=== PATIENT | female | born 2005 | race Caucasian/White ===

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

== ENCOUNTER → 2025-01-09 | Outpatient (CLI) | payer OTHER, SELFPAY ==
[2025-01-09 18:03] LABS: Hematocrit 36.2 % (37-47); Hemoglobin 12.1 g/dL (12.0-15.0); Immature Granulocytes Count 0.050 X10^3/uL (0.0-0.0); Mean Corp Hgb Conc 33.4 g/dL (32-36); Mean Corpuscular Volume 78.7 fL (81-99); Mean Platelet Vol. 8.5 fl (6.2-12.0); NRBC Flagged by Analyzer 0 % (0-5); Platelet Count 338 K/mm3 (150-450); RBC Distribution Width CV 13.0 % (11.6-14.6); RBC Distribution Width SD 37.1 fl (35.1-43.9); Red Blood Count 4.60 M/mm3 (4.2-5.4); White Blood Count 6.7 K/mm3 (4.4-11.0)
[2025-01-09 18:17] LABS: AST(SGOT) 22 U/L (<=31); Alanine Aminotransfer ALT/SGPT 14 U/L (<=34); Albumin, Serum 4.2 g/dL (3.5-5.0); Alkaline Phosphatase 68 U/L (35-104); Anion Gap 13 (5-15); BUN 10 mg/dL (4-19); BUN/Creat Ratio 24.6 RATIO (10-20); Calcium,Total 9.5 mg/dL (7.6-11.0); Carbon Dioxide 23.4 mmol/L (21.0-32.0); Chloride 102 mmol/L (98-108); Globulin 3.0 g/dL (2.2-4.2); Glucose 85 mg/dL (70-99); Potassium 3.8 mmol/L (3.3-5.1)
== END | disposition home or self-care (01) ==
LOC: MTLAB 16:24
PROVIDERS: PCP Nurse Practitioner Adult Health; Referring Provider Internal Medicine Rheumatology; Visit Provider Internal Medicine Rheumatology
DX: M05.79 Rheumatoid arthritis with rheumatoid factor of multiple sites without organ or systems involvement (principal); R76.89 Other specified abnormal immunological findings in serum; N83.519 Torsion of ovary and ovarian pedicle, unspecified side; N94.6 Dysmenorrhea, unspecified; Z79.899 Other long term (current) drug therapy
CPT/HCPCS: 36415; 80053; 85025

== ENCOUNTER → 2025-01-16 | Outpatient (CLI) | payer OTHER, SELFPAY ==
--- NOTE | 2025-01-16 15:54 | RAD_ITS ---
PROCEDURE: Chest PA and lateral 01/16/2025 REASON FOR EXAM: RA TECHNIQUE: Procedure Code: RADCXR Modality: DX Procedure: CHEST PA AND LATERAL COMPARISON: None. FINDINGS: There is bilateral perihilar peribronchial thickening consistent with viral pneumonia or acute bronchitis. The heart borders mediastinum and pulmonary vascular pattern are normal. The upper abdominal bowel gas pattern is normal. There are no significant bony abnormalities. RAD/Chest PA and Lateral IMPRESSION: Findings consistent with viral pneumonia or acute bronchitis. Reading Location: [place] [address]
--- OUTSIDE RECORDS SUMMARY | 2025-01-16 18:08 | XMS RPT_ITS | CCD ---
Author Organization [facility] Care Team Providers Care Buckler And Lacer Name Role Phone VERONICA DIANA PA-C Primary Care Physician Dr. Amanda Hernandez Primary Care Provider Dr. Amanda Hernandez Referring Provider Dr. Nivia Anderson Attending Provider Amanda Hernandez MD Primary Care Provider Dr. Amanda Hernandez Primary Care Provider Dr. Amanda Hernandez Referring Provider Dr. Nivia Anderson Attending Provider DESMOND CRISTINA Attending Unavailable DESMOND CRISTINA Referring Unavailable HERNANDEZ, AMANDA A Primary Care Unavailable HERNANDEZ, AMANDA A Primary Care Unavailable HERNANDEZ, AMANDA A Attending Unavailable REFERRED, SELF Referring Unavailable HERNANDEZ, AMANDA A Attending Unavailable HERNANDEZ, AMANDA A Primary Care Unavailable REFERRED, SELF Referring Unavailable HERNANDEZ, AMANDA A Attending Unavailable HERNANDEZ, AMANDA A Primary Care Unavailable REFERRED, SELF Referring Unavailable REFERRED, SELF Referring Unavailable HERNANDEZ, AMANDA A Primary Care Unavailable HERNANDEZ, AMANDA A Attending Unavailable HERNANDEZ, AMANDA A Primary Care Unavailable AROLDO PAGAN Attending Unavailable REFERRED, SELF Referring Unavailable HERNANDEZ, AMANDA A Primary Care Unavailable RANDAL RUIZ Attending Unavailable REFERRED, SELF Referring Unavailable HERNANDEZ, AMANDA A Primary Care Unavailable RANDAL RUIZ Attending Unavailable REFERRED, SELF Referring Unavailable DESMOND CRISTINA Attending Unavailable DESMOND CRISTINA Referring Unavailable HERNANDEZ, AMANDA A Primary Care Unavailable HERNANDEZ, AMANDA A Attending Unavailable HERNANDEZ, AMANDA A Referring Unavailable HERNANDEZ, AMANDA A Primary Care Unavailable ALEYDA MAO Attending Un available VACCARELLI PA-C, VERONICA Primary Care Unavailab le VACCARELLI PA-C, VERONICA Attending Unavailab le VACCARELLI PA-C, VERONICA Primary Care Unavailab le MOHINDER SAW RUNNER-AIR CONDITIONING SHEET METAL INSTALLER, JULIET Attending Unavaila ble VACCARELLI PA-C, VERONICA Primary Care Unavailab le VACCARELLI PA-C, VERONICA Primary Care Unavailab le PAUL PA-C, YUVAL L Attending Tang Hernandez MD, Dr. Patel Primary Care Provider Yue SHAW, Dr. Singh Attending Provider Yue SHAW, Dr. Singh Referring Provider MAST SAW RUNNER-AIR CONDITIONING SHEET METAL INSTALLER, BIMAL Attending Unavailabl e VACCARELLI PA-C, VERONICA Primary Care Unavailab le VACCARELLI PA-C, VERONICA Primary Care Unavailab le TAMMY DO, JOSE EDUARDO Attending Unavailable VACCARELLI PA-C, VERONICA Primary Care Unavailab le YUE SHAW, DR SINGH Attending Unavailabl e VACCARELLI PA-C, VERONICA Primary Care Unavailab le MAST SAW RUNNER-AIR CONDITIONING SHEET METAL INSTALLER, BIMAL Attending Unavailabl e MAST SAW RUNNER-AIR CONDITIONING SHEET METAL INSTALLER, BIMAL Attending Unavailabl e VACCARELLI PA-C, VERONICA Primary Care Unavailab le MAST MANAGEMENT RECRUITER, BIMAL Primary Care Provider Chago SHAW, Dr. Patel Referring Provider Monica SHAW, Dr. Gonzáles Attending Provider Amanda Hernandez Primary Care Unavailable Casandra Turner Attending Unavailable Casandra Turner Referring Unavailable Amanda Hernandez Primary Care Unavailable Casandra Turner Attending Unavailable Casandra Turner Referring Unavailable Casandra Turner Attending Unavailable OSMIN, BIMAL Primary Care Unavailable Casandra Turner Referring Unavailable OSMIN, BIMAL Primary Care Unavailable Nivia Anderson Attending Unavailable Amanda Hernandez Referring Unavailable MAST, BIMAL Primary Care Unavailable Casandra Turner Attending Unavailable Casandra Turner Referring Unavailable Medications Current Medications Medication Drug Class(es) Dates Sig (Normalized) Sig (Original) cholecalciferol 0.125 mg oral tablet (6 sources) Vitamin D Start: 04-17-2023 take 1 tablet by mouth once daily Cholecalciferol (Vitamin D3) 125 mcg (5,000 unit) tablet Active 125 ug PO DAILY April 17, 2023 1:00am 168 hr ethinyl estradiol 0.41759 mg/hr / norelgestromin 0.05184 mg/hr transdermal system (7 sources) Progestin, Estrogen Start: 10-02-2023 ethinyl estradiol-norelgestr omin 35 mcg-150 mcg/24 hr transdermal film, extended release 0 Refill(s) Start Date: 10/02/23 Status: Ordered Repeat number: 1 Start: 05-29-2023 apply 1 dose transde rmal route every week XULANE 150-35 MCG/24HR patch Place 1 Patch onto the skin once a week 05/29/2023 Active hydroxychloroquine sulfate 200 mg oral tablet (2 sources) Antimalarial, Antirheumatic Agent Start: 10-14-2024 take 1 tablet by mouth once daily Hydroxychloroquine (Plaquenil) 200 mg tablet Active 200 mg PO daily October 14, 2024 12:00am meloxicam 15 mg oral tablet (3 sources) Nonsteroidal Anti-inflammatory Drug Start: 08-01-2024 Mobic 15 mg oral tablet Dose : 15 mg = 1 tab(s), Oral, qDay, # 30 tab(s), 0 Refill(s), Pharmacy: [facility]/pharmacy #[id number], 156, cm, 06/15/24 14:03:00 EDT, Height, kg, 06/15/24 14:03:00 EDT, Dosing Weight Start Date: 08/01/24 Status: Ordered Quantity: 30.0 Unit: tab(s) Repeat number: 1 Start: 06-15-2024 Mobic 15 mg or al tablet Dose : 15 mg = 1 tab(s), Oral, qDay, # 30 tab(s), 0 Refill(s), Pharmacy: [facility]/pharmacy #[id number], 156, cm, 06/15/24 14:03:00 EDT, Height, kg, 06/15/24 14:03:00 EDT, Dosing Weight Start Date: 06/15/24 Status: Ordered Quantity: 30.0 Unit: tab(s) Repeat number: 1 naproxen 250 mg oral tablet (12 sources) Nonsteroidal Anti-inflammatory Drug Start: 03-16-2023 naproxen [...] 30 Tablet 1 02/17/2023 Active Start: 07-31-2022 End: 10-14-2024 Naproxen 500 mg tablet Disco ntinued 500 mg PO TWICE A DAY as needed for pain July 31, 2022 12:00am October 14, 2024 2:15pm 500mg for first dose, 250 x8hrs after predniSONE 5 mg oral tablet (2 sources) Start: 10-14-2024 take 1 tablet by mouth once daily Prednisone 5 mg tablet Active 5 mg PO daily October 14, 2024 12:00am Completed/Discontinued Medications Medication Drug Class(es) Dates Sig (Normalized) Sig (Original) Norelgestromin-Ethi n.Estradiol (Xulane) 150-35 mcg/24 hr patch weekly (6 sources) Start: 04-17-2023 End: 03-23-2024 Norelgestromin-Ethin .Estradiol (Xulane) 150-35 mcg/24 hr patch weekly Discontinued 1 NMA TD Q7D 05 11April 17, 2023 1:00am March 23, 2024 9:29am Start: 04-17-2023 Norelgestromin -Ethin.Estradiol (Xulane) 150-35 mcg/24 hr patch weekly Active 1 PATCH TD Q7D April 17, 2023 1:00am Start: 04-17-2023 Norelgestromin -Ethin.Estradiol (Xulane) 150-35 mcg/24 hr patch weekly Active 1 PATCH TD Q7D April 17, 2023 12:00am Norelgestromin-Ethin.Estradi ol 150-35 mcg/24 hr patch weekly (12 sources) Start: 05-09-2024 End: 10-14-2024 Norelgestromin-Ethin.Estradi ol 150-35 mcg/24 hr patch weekly Discontinued 1 NMA TD EVERY WEEK 12 May 09, 2024 8:22am October 14, 2024 2:36pm Start: 05-09-2024 Norelgestromin -Ethin.Estradiol 150-35 mcg/24 hr patch weekly Active 1 NMA TD EVERY WEEK 12 May 09, 2024 8:22am Start: 05-06-2024 End: 05-09-2024 Norelgestromin-Ethin.Estradi ol 150-35 mcg/24 hr patch weekly Discontinued 1 NMA TD EVERY WEEK 3 May 06, 2024 12:51pm May 09, 2024 8:23am Start: 03-23-2024 End: 05-06-2024 Norelgestromin-Ethin.Estradi ol 150-35 mcg/24 hr patch weekly Discontinued 1 NMA TD EVERY WEEK 3 March 23, 2024 9:29am May 06, 2024 12:51pm ondansetron 4 mg oral tablet (6 sources) Serotonin-3 Receptor Antagonist Start: 05-18-2017 End: 05-21-2017 take 1 tablet by mouth every six hours as needed for nausea and vomiting Ondansetron Hcl (Zofran) 4 mg tablet Discontinued 4 mg PO EVERY 6 HOURS as needed for nausea and vomiting 10 3 0 May 18, 2017 12:00am May 20, 2017 12:00am May 21, 2017 12:06am Noninfective gastroenteritis and colitis, unspecified Vitamin D (3 sources) Start: 06-15-2024 vitamin D vitamin D, 0 Refill(s), 44.5 Start Date: 06/15/24 Status: Ordered Repeat number: 1 Problems Active Problems Problem Classification Problem Date Documented Da te Episodic/Chronic Acquired foot deformities (3 sources) Acquired pes planus 06-15-2024 Episodic Immunizations and screening for infectious disease (3 sources) Rheumatoid factor positive; Translations: [Other specified abnormal immunological findings in serum] Onset: 01-09-2025 07-26-2024 Episodic Menstrual disorders (11 sources) Dysmenorrhea; Translations: [Dysmenorrhea, unspecified] Onset: 01-09-2025 04-17-2023 Chronic Comment on above: failed NSAIDs trial Reji luciano used and did well- thought she may have had mood side effects, want to take a break for now and then may try nuvaring. Noninfectious gastroenteritis (6 sources) Gastroenteritis; Translations: [Noninfective gastroenteritis and colitis, unspecified] 07-31-2022 Episodic Nutritional deficiencies (4 sources) Vitamin D deficiency 10-02-2023 Chronic Other aftercare (1 source) Other detention (current) drug therapy; Translations: [Other parts counterman (current) drug therapy] Onset: 01-09-2025 Episodic Other female genital disorders (1 source) Torsion of ovary and ovarian pedicle, unspecified side; Translations: [Torsion of ovary and ovarian pedicle, unspecified side] Onset: 01-09-2025 Episodic Other gastrointestinal disorders (2 sources) Splenomegaly; Translations: [Splenomegaly, not elsewhere classified] 06-05-2023 Episodic Other liver diseases (1 source) Elevated liver enzymes level; Translations: [Abnormal levels of other serum enzymes] 06-11-2023 Episodic Other liver diseases (2 sources) Serum lactate dehydrogenase level elevated; Translations: [Elevated LDH] 06-11-2023 Episodic Other liver diseases (1 source) Elevated levels of transaminase & lactic acid dehydrogenase; Translations: [Elevated levels of transaminase & lactic acid dehydrogenase] 08-13-2023 Episodic Other non-traumatic joint disorders (3 sources) Hip pain 06-15-2024 Episodic Other non-traumatic joint disorders (3 sources) Knee pain 06-15-2024 Episodic Other screening for suspected conditions (not mental disorders or infectious disease) (1 source) Elevated C-reactive protein; Translations: [Elevated C-reactive protein (CRP)] 06-11-2023 Episodic Other upper respiratory infections (2 sources) Viral pharyngitis; Translations: [Acute pharyngitis, unspecified] Onset: 06-06-2024 06-05-2023 Episodic Residual codes; unclassified (6 sources) History of laparoscopy; Translations: [Other specified postprocedural states] 07-31-2022 Episodic Comment on above: ovarian right torsio n, able to be untwisted and saved 2020 Residual codes; unclassified (3 sources) Screening due 06-15-2024 Episodic Rheumatoid arthritis and related disease (5 sources) Rheumatoid arthritis; Translations: [Rheumatoid arthritis, unspecified] Onset: 08-29-2024 10-14-2024 Chronic Unclassified (3 sources) Patient encounter status 04-16-2025 Past or Other Problems Problem Classification Problem Date Documented Da te Episodic/Chronic Ovarian cyst (3 sources) Cyst of ovary; Translations: [Unspecified ovarian cyst, unspecified side] Onset: 01-17-2021 Resolved: 05-02-2021 05-02-2021 Episodic Results Test Name Value Interpretation Reference Range Facility CBC W/Diff, Automatedon 12-31 Absolute Lymph 2.04 X10 3/uL Normal 0.83-4.51 [facility] Comment on above: Performed By: #### L 3890.6301, L4, L3890.6202, L3890.6102, L500.4050, L501.0900, L4500.0100, L100.0100 #### [facility] [address] [place], [address] Absolute Neut 4.0 X10 3/uL Normal 2.0-7.7 [facility] Comment on above: Performed By: #### L 3890.630, , L3890.6202, L3890.6102, L500.4050, L501.0900, L4500.0100, L100.0100 #### [facility] [address] [place], [address] Basophils/100 WBC (Bld) 0.7 % Normal 0-1 [facility] Comment on above: Performed By: #### L 3890.6301, L4, L3890.6202, L3890.6102, L500.4050, L501.0900, L4500.0100, L100.0100 #### [facility] [address] [place], [address] Eosinophils/100 WBC (Bld) 1.3 % Normal 0-5 [facility] Comment on above: Performed By: #### L 3890.6301, L4, L3890.6202, L3890.6102, L500.4050, L501.0900, L4500.0100, L100.0100 #### [facility] [address] [place], [address] Erythrocyte distribution width (RBC) [Ratio] 13.0 % Normal 11.6-14.6 [facility] Comment on above: Performed By: #### L 3890.6301, L400, L3890.6202, L3890.6102, L500.4050, L501.0900, L4500.0100, L100.0100 #### [facility] [address] [place], [address] Hematocrit (Bld) [Volume fraction] 36.2 % Low 37-47 [facility] Comment on above: Performed By: #### L 3890.630, , L3890.6202, L3890.6102, L500.4050, L501.0900, L4500.0100, L100.0100 #### [facility] [address] [place], [address] Hemoglobin (Bld) [Mass/Vol] 12.1 g/dL Normal 12.0-15.0 [facility] Comment on above: Performed By: #### L 3890.6301, L4, L3890.6202, L3890.6102, L500.4050, L501.0900, L4500.0100, L100.0100 #### [facility] [address] [place], [address] IG% 0.700 Normal 0.0-0.9 [facility] Comment on above: Result Comment: IG% - Immature Granulocytes (promyelocytes, myelocytes and metamyelocytes) > 1% indicates that a LEFT SHIFT is Present. Performed By: #### L 3890.6301, L4, L3890.6202, L3890.6102, L500.4050, L501.0900, L4500.0100, L100.0100 #### [facility] [address] [place], [address] Lymphocytes/100 WBC (Bld) 30.4 % Normal 19-41 [facility] Comment on above: Performed By: #### L 3890.6301, L400.2010, L3890.6202, L3890.6102, L500.4050, L501.0900, L4500.0100, L100.0100 #### [facility] [address] [place], [address] MCH (RBC) [Entitic mass] 26.3 pg Low 27.0-32.0 [facility] Comment on above: Performed By: #### L 3890.6301, L400.2010, L3890.6202, L3890.6102, L500.4050, L501.0900, L4500.0100, L100.0100 #### [facility] [address] [place], [address] MCHC (RBC) [Mass/Vol] 33.4 g/dL Normal 32-36 [facility] Comment on above: Performed By: #### L 3890.6301, L400.2010, L3890.6202, L3890.6102, L500.4050, L501.0900, L4500.0100, L100.0100 #### [facility] [address] [place], [address] MCV (RBC) [Entitic vol] 78.7 fL Low 81-99 [facility] Comment on above: Performed By: #### L 3890.6301, L400.2010, L3890.6202, L3890.6102, L500.4050, L501.0900, L4500.0100, L100.0100 #### [facility] [address] [place], [address] Monocytes/100 WBC (Bld) 7.6 % Normal 0-10 [facility] Comment on above: Performed By: #### L 3890.6301, L400.2010, L3890.6202, L3890.6102, L500.4050, L501.0900, L4500.0100, L100.0100 #### [facility] [address] [place], [address] Neutrophils/100 WBC (Bld) 59.3 % Normal 47-70 [facility] Comment on above: Performed By: #### L 3890.6301, L400.2010, L3890.6202, L3890.6102, L500.4050, L501.0900, L4500.0100, L100.0100 #### [facility] [address] [place] [place], [address] Nucleated RBC (Bld) [#/Vol] 0 10*3/uL Normal 0-5 [facility] Comment on above: Performed By: #### L 3890.6301, L4, L3890.6202, L3890.6102, L500.4050, L501.0900, L4500.0100, L100.0100 #### [facility] [address] [facility] [place], [address] Platelet mean volume (Bld) [Entitic vol] 8.5 fL Normal 6.2-12.0 [facility] Comment on above: Performed By: #### L 3890.6301, L4, L3890.6202, L3890.6102, L500.4050, L501.0900, L4500.0100, L100.0100 #### [facility] [address] [place], [address] Platelets (Bld) [#/Vol] 338 10*3/uL Normal 150-450 [facility] Comment on above: Performed By: #### L 3890.6301, L4, L3890.6202, L3890.6102, L500.4050, L501.0900, L4500.0100, L100.0100 #### [facility] [address] [place], [address] RBC (Bld) [#/Vol] 4.60 10*6/uL Normal 4.2-5.4 [facility] Comment on above: Performed By: #### L 3890.6301, L400.2010, L3890.6202, L3890.6102, L500.4050, L501.0900, L4500.0100, L100.0100 #### [facility] [address] [place], [address] RDW SD 37.1 fl Normal 35.1-43.9 [facility] Comment on above: Performed By: #### L 3890.6301, L400, L3890.6202, L3890.6102, L500.4050, L501.0900, L4500.0100, L100.0100 #### [facility] [address] [place], [address] WBC (Bld) [#/Vol] 6.7 10*3/uL Normal 4.4-11.0 [facility] Comment on above: Performed By: #### L 3890.6301, L400.2010, L3890.6202, L3890.6102, L500.4050, L501.0900, L4500.0100, L100.0100 #### [facility] [address] [place], [address] Comprehensive Metabolic Prof laon 01-09-2025 Albumin [Mass/Vol] 4.2 g/dL Normal 3.5-5.0 [facility] Comment on above: Performed By: #### L 3890.6301, L400.2010, L3890.6202, L3890.6102, L500.4050, L501.0900, L4500.0100, L100.0100 #### [facility] [address] [place], [address] Albumin/Globulin [Mass ratio] 1.4 {ratio} Normal 0.9-2.4 [facility] Comment on above: Performed By: #### L 3890.6301, L400.2010, L3890.6202, L3890.6102, L500.4050, L501.0900, L4500.0100, L100.0100 #### [facility] [address] [place], [address] ALK PHOS 68 U/L Normal 35-104 [facility] Comment on above: Performed By: #### L 3890.6301, L4, L3890.6202, L3890.6102, L500.4050, L501.0900, L4500.0100, L100.0100 #### [facility] [address] [place], [address] ALT [Catalytic activity/Vol] 14 U/L Normal <=34 [facility] Comment on above: Performed By: #### L 3890.6301, L4, L3890.6202, L3890.6102, L500.4050, L501.0900, L4500.0100, L100.0100 #### [facility] [address] [place], [address] AST [Catalytic activity/Vol] 22 U/L Normal <=31 [facility] Comment on above: Performed By: #### L 3890.6301, L400, L3890.6202, L3890.6102, L500.4050, L501.0900, L4500.0100, L100.0100 #### [facility] [address] [place], [address] Bilirubin [Mass/Vol] 0.29 mg/dL Normal 0.00-1.30 [facility] Comment on above: Performed By: #### L 3890.6301, L4, L3890.6202, L3890.6102, L500.4050, L501.0900, L4500.0100, L100.0100 #### [facility] [address] [place], [address] BUN/CRE 24.6 RATIO High 10-20 [facility] Comment on above: Performed By: #### L 3890.6301, L4, L3890.6202, L3890.6102, L500.4050, L501.0900, L4500.0100, L100.0100 #### [facility] [address] [place], [address] Calcium [Mass/Vol] 9.5 mg/dL Normal 7.6-11.0 [facility] Comment on above: Performed By: #### L 3890.6301, , L3890.6202, L3890.6102, L500.4050, L501.0900, L4500.0100, L100.0100 #### [facility] [address] [place], [address] Chloride [Moles/Vol] 102 mmol/L Normal 98-108 [facility] Comment on above: Performed By: #### L 3890.6301, L4, L3890.6202, L3890.6102, L500.4050, L501.0900, L4500.0100, L100.0100 #### [facility] [address] [place], [address] CO2 [Moles/Vol] 23.4 mmol/L Normal 21.0-32.0 [facility] Comment on above: Performed By: #### L 3890.6301, L4, L3890.6202, L3890.6102, L500.4050, L501.0900, L4500.0100, L100.0100 #### [facility] [address] [place], [address] Creatinine [Mass/Vol] 0.40 mg/dL Low 0.70-1.20 [facility] Comment on above: Performed By: #### L 3890.6301, L400, L3890.6202, L3890.6102, L500.4050, L501.0900, L4500.0100, L100.0100 #### [facility] [address] [place], [address] GAP 13 Normal 5-15 [facility] Comment on above: Performed By: #### L 3890.6301, L4, L3890.6202, L3890.6102, L500.4050, L501.0900, L4500.0100, L100.0100 #### [facility] [address] [place], [address] GFR/1.73 sq M.predicted among non-blacks MDRD (S/P/Bld) [Vol rate/Area] 146 mL/min/{1.73_m2} Normal >60 [facility] Comment on above: Result Comment: mL/m in/1.73m2 CKD-EPI Creatinine Equation (2020) Performed By: #### L 3890.6301, L4, L3890.6202, L3890.6102, L500.4050, L501.0900, L4500.0100, L100.0100 #### [facility] [address] [place], [address] Globulin (S) [Mass/Vol] 3.0 g/dL Normal 2.2-4.2 [facility] Comment on above: Performed By: #### L 3890.6301, L400, L3890.6202, L3890.6102, L500.4050, L501.0900, L4500.0100, L100.0100 #### [facility] [address] [place], [address] Glucose [Mass/Vol] 85 mg/dL Normal 70-99 [facility] Comment on above: Performed By: #### L 3890.6301, L400, L3890.6202, L3890.6102, L500.4050, L501.0900, L4500.0100, L100.0100 #### [facility] [address] [place], [address] Potassium [Moles/Vol] 3.8 mmol/L Normal 3.3-5.1 [facility] Comment on above: Performed By: #### L 3890.6301, L400, L3890.6202, L3890.6102, L500.4050, L501.0900, L4500.0100, L100.0100 #### [facility] [address] [place], [address] Sodium [Moles/Vol] 139 mmol/L Normal 133-145 [facility] Comment on above: Performed By: #### L 3890.6301, L4, L3890.6202, L3890.6102, L500.4050, L501.0900, L4500.0100, L100.0100 #### [facility] [address] [place], [address] T PROT 7.2 g/dL Normal 5.9-8.4 [facility] Comment on above: Performed By: #### L 3890.6301, L400, L3890.6202, L3890.6102, L500.4050, L501.0900, L4500.0100, L100.0100 #### [facility] [address] [place], [address] Urea nitrogen [Mass/Vol] 10 mg/dL Normal 4-19 [facility] Comment on above: Performed By: #### L 3890.6301, L400.2010, L3890.6202, L3890.6102, L500.4050, L501.0900, L4500.0100, L100.0100 #### [facility] [address] [place], [address] Factory Worker Office Visit Reporton 10-14-2024 Factory Worker Office Visit Report [facility] [address], [address] [place] [address] OFFICE VISIT Date of Service: 10/14/24 MR#: [id number] Acct: [id number] Name: NEYMAR GROSS Rep #: [id number] : 2005 Provider: Dr. Nivia garber MD Age/Sex: 19/F Location: [facility] Status: Signed Intake Vital Signs 07/28/23 16:11 10/14/24 14:13 Height 4 ft 11 in 4 ft 11 in Weight: 101 lb 5 oz BMI 20.5 BP 117/73 Intake Visit Reasons: Control FU Packaging Coordinator Required: No Is patient in pain?: No Allergies No Known Allergies Allergy (Unverified 10/14/24 14:14) Medications ???Medication ???Instructions ???Recorded ???Confirmed ???Type cholecalciferol (vitamin D3) 125 125 mcg PO DAILY 04/17/23 10/14/24 History mcg (5,000 unit) tablet hydroxychloroquine 200 mg tablet 200 mg PO QDAY 10/14/24 10/14/24 H istory (Plaquenil) prednisone 5 mg tablet 5 mg PO QDAY 10/14/24 10/14/24 His tory Is last menstrual period known: Yes Last Menstrual Period: 09/22/24 Post menopausal: No Patient : No : No PFSH Medical History Rheumatoid arthritis Surgical History S/P laparoscopy Family History Father Hypertension Other Thyroid disorder Social History current occupational status: employed 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 she has had improvement on the xulane bu hads some local reaction with the adhesive and she has some mood side effects. 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 she is wanting to stop the patch for a few months, if she goes back on a hormone she is open to trying something different maybe the nuvaring or a pill. Female Reproductive History Last Menstrual Period: 09/22/24 ROS Const Constitutional: Denies fatigue, fever(s), headache(s), [...] (1) Dysmenorrhea in adolescent: Status: Acute Comment: xulane used and did well- thought she may have had mood side effects, want to take a break for now and then may try nuvaring. Medications: Discontinued norelgestromin-ethin .estradiol 150-35 mcg/24 hr Discontinued Reason: Order Changed 1 patch transdermal QWEEK 12 patches 12RF Plan Problem list updated and treatment plans were reviewed with the patient and relevant educational handouts given. See problem list details for specific plan information. 10/18/24 5245 Date Nivia Lr Signature: Date (if applicable) CC: Normal [facility] Anion gap in Serum or Plasma Ordered By: Casandra Turner on 10-13-2024 Anion gap [Moles/Vol] 13 mmol/L 5-15 [facility] BUN/creatinine ratioOrdered By: Casandra Turner on 10-13-2024 Urea nitrogen/Creatinine [Mass ratio] 23.5 mg/mg High 10-20 [facility] Bilirubin, totalOrdered By: Casandra Turner on 10-13-2024 Bilirubin [Mass/Vol] 0.18 mg/dL 0.00-1.30 [facility] Carbon dioxide, total [Moles /volume] in Central venous bloodOrdered By: Casandra Turner on 10-13-2024 CO2 [Moles/Vol] 21.8 mmol/L 21.0-32.0 [facility] Chloride assayOrdered By: Pollo Turner on 10-13-2024 Chloride [Moles/Vol] 104 mmol/L 98-108 [facility] Comprehensive Metabolic Prof ilon 10-13-2024 Albumin [Mass/Vol] 4.2 g/dL Normal 3.5-5.0 [facility] Comment on above: Performed By: #### L 3890.6301, L400.2010, L3890.6202, L3890.6102, L500.4050, L501.0900, L4500.0100, L100.0100 #### [facility] [address] [place], [address] Albumin/Globulin [Mass ratio] 1.4 {ratio} Normal 0.9-2.4 [facility] Comment on above: Performed By: #### L 3890.6301, L4, L3890.6202, L3890.6102, L500.4050, L501.0900, L4500.0100, L100.0100 #### [facility] [address] [place], [address] ALK PHOS 47 U/L Normal 35-104 [facility] Comment on above: Performed By: #### L 3890.6301, L4, L3890.6202, L3890.6102, L500.4050, L501.0900, L4500.0100, L100.0100 #### [facility] [address] [place], [address] ALT [Catalytic activity/Vol] 31 U/L Normal <=34 [facility] Comment on above: Performed By: #### L 3890.6301, , L3890.6202, L3890.6102, L500.4050, L501.0900, L4500.0100, L100.0100 #### [facility] [address] [place], [address] AST [Catalytic activity/Vol] 22 U/L Normal <=31 [facility] Comment on above: Performed By: #### L 3890.6301, , L3890.6202, L3890.6102, L500.4050, L501.0900, L4500.0100, L100.0100 #### [facility] [address] [place], [address] Bilirubin [Mass/Vol] 0.18 mg/dL Normal 0.00-1.30 [facility] Comment on above: Performed By: #### L 3890.6301, L4, L3890.6202, L3890.6102, L500.4050, L501.0900, L4500.0100, L100.0100 #### [facility] [address] [place], [address] BUN/CRE 23.5 RATIO High 10-20 [facility] Comment on above: Performed By: #### L 3890.6301, L400.2010, L3890.6202, L3890.6102, L500.4050, L501.0900, L4500.0100, L100.0100 #### [facility] [address] [place], [address] Calcium [Mass/Vol] 9.4 mg/dL Normal 7.6-11.0 [facility] Comment on above: Performed By: #### L 3890.6301, L400, L3890.6202, L3890.6102, L500.4050, L501.0900, L4500.0100, L100.0100 #### [facility] [address] [place], [address] Chloride [Moles/Vol] 104 mmol/L Normal 98-108 [facility] Comment on above: Performed By: #### L 3890.6301, L400.2010, L3890.6202, L3890.6102, L500.4050, L501.0900, L4500.0100, L100.0100 #### [facility] [address] [place], [address] CO2 [Moles/Vol] 21.8 mmol/L Normal 21.0-32.0 [facility] Comment on above: Performed By: #### L 3890.6301, L400.2010, L3890.6202, L3890.6102, L500.4050, L501.0900, L4500.0100, L100.0100 #### [facility] [address] [place], [address] Creatinine [Mass/Vol] 0.43 mg/dL Low 0.70-1.20 [facility] Comment on above: Performed By: #### L 3890.6301, L400, L3890.6202, L3890.6102, L500.4050, L501.0900, L4500.0100, L100.0100 #### [facility] [address] [place], [address] GAP 13 Normal 5-15 [facility] Comment on above: Performed By: #### L 3890.6301, L4, L3890.6202, L3890.6102, L500.4050, L501.0900, L4500.0100, L100.0100 #### [facility] [address] [place], [address] GFR/1.73 sq M.predicted among non-blacks MDRD (S/P/Bld) [Vol rate/Area] 144 mL/min/{1.73_m2} Normal >60 [facility] Comment on above: Result Comment: mL/m in/1.73m2 CKD-EPI Creatinine Equation (2020) Performed By: #### L 3890.6301, L4, L3890.6202, L3890.6102, L500.4050, L501.0900, L4500.0100, L100.0100 #### [facility] [address] [place], [address] Globulin (S) [Mass/Vol] 3.0 g/dL Normal 2.2-4.2 [facility] Comment on above: Performed By: #### L 3890.6301, L4, L3890.6202, L3890.6102, L500.4050, L501.0900, L4500.0100, L100.0100 #### [facility] [address] [place], [address] Glucose [Mass/Vol] 96 mg/dL Normal 70-99 [facility] Comment on above: Performed By: #### L 3890.6301, L400, L3890.6202, L3890.6102, L500.4050, L501.0900, L4500.0100, L100.0100 #### [facility] [address] [place], [address] Potassium [Moles/Vol] 3.8 mmol/L Normal 3.3-5.1 [facility] Comment on above: Performed By: #### L 3890.6301, L4, L3890.6202, L3890.6102, L500.4050, L501.0900, L4500.0100, L100.0100 #### [facility] [address] [place], [address] Sodium [Moles/Vol] 138 mmol/L Normal 133-145 [facility] Comment on above: Performed By: #### L 3890.6301, , L3890.6202, L3890.6102, L500.4050, L501.0900, L4500.0100, L100.0100 #### [facility] [address] [place], [address] T PROT 7.3 g/dL Normal 5.9-8.4 [facility] Comment on above: Performed By: #### L 3890.6301, L4, L3890.6202, L3890.6102, L500.4050, L501.0900, L4500.0100, L100.0100 #### [facility] [address] [place], [address] Urea nitrogen [Mass/Vol] 10 mg/dL Normal 4-19 [facility] Comment on above: Performed By: #### L 3890.6301, L4, L3890.6202, L3890.6102, L500.4050, L501.0900, L4500.0100, L100.0100 #### [facility] [address] [place], [address] Glomerular filtration rate ( GFR) estimation/1.73 sq m using serum, plasma, or whole bOrdered By: Casandra Turner on 10-13-2024 GFR/1.73 sq M.predicted among non-blacks MDRD (S/P/Bld) [Vol rate/Area] 144 mL/min/{1.73_m2} >60 [facility] Comment on above: mL/min/1.73m2 CKD-EP I Creatinine Equation (2020) Laboratory - Chemistry and C hemistry - challengeOrdered By: Casandra Turner on 10-13-2024 AST [Catalytic activity/Vol] 22 U/L <32 [facility] Potassium measurement (mass/ volume)Ordered By: Casandra Turner on 10-13-2024 Potassium (Unsp spec) [Mass/Vol] 3.8 mmol/L 3.3-5.1 [facility] Serum creatinine measurement (mass/volume)Ordered By: Casandra Turner on 10-13-2024 Creatinine [Mass/Vol] 0.43 mg/dL Low 0.70-1.20 [facility] Serum globulin measurementOr dered By: Casandra Turner on 10-13-2024 Globulin (S) [Mass/Vol] 3.0 g/dL 2.2-4.2 [facility] Serum glucose measurement (m ass/volume)Ordered By: Casandra Turner on 10-13-2024 Glucose [Mass/Vol] 96 mg/dL 70-99 [facility] Serum or plasma alanine england otransferase (ALT) measurementOrdered By: Casandra Turner on 10-13-2024 ALT [Catalytic activity/Vol] 31 U/L <35 [facility] Serum or plasma albumin geraldine urement (mass/volume)Ordered By: Casandra Turner on 10-13-2024 Albumin [Mass/Vol] 4.2 g/dL 3.5-5.0 [facility] Serum or plasma albumin/glob ulin mass ratioOrdered By: Casandra Turner on 10-13-2024 Albumin/Globulin [Mass ratio] 1.4 {ratio} 0.9-2.4 [facility] Serum or plasma alkaline nika sphatase measurementOrdered By: Casandra Turner on 10-13-2024 ALP [Catalytic activity/Vol] 47 U/L 35-104 [facility] Serum or plasma calcium geraldine urement (mass/volume)Ordered By: Casandra Turner on 10-13-2024 Calcium [Mass/Vol] 9.4 mg/dL 7.6-11.0 [facility] Serum or plasma urea nitroge n measurement (mass/volume)Ordered By: Casandra Turner on 10-13-2024 Urea nitrogen [Mass/Vol] 10 mg/dL 4-19 [facility] Sodium levelOrdered By: Enid Turner on 10-13-2024 Sodium [Moles/Vol] 138 mmol/L 133-145 [facility] Total proteinOrdered By: Marlo Turner on 10-13-2024 Protein [Mass/Vol] 7.3 g/dL 5.9-8.4 [facility] QUANTTBon 09-20-2024 QFT Criteria Comment Normal [facility] Comment on above: Result Comment: QuantiFERON-TB Gold Plus is a qualitative indirect test for M tuberculosis infection (including disease) and is intended for use in conjunction with risk assessment, radiography, and other medical and diagnostic evaluations. The QuantiFERON-TB Gold Plus result is determined by subtracting the Nil value from either TB antigen (Ag) value. The Mitogen tube serves as a control for the test. Performed By: #### 1 [id number] ####[place] [address] [address] QFT Mitogen Value >10.00 [facility] Comment on above: Performed By: #### 1 89301 ####[place] [address] [place] [address] QFT Nil Value 0.01 IU/mL [facility] Comment on above: Performed By: #### 1 [address]0761 ####[address] [place] [address] QFT TB1 Ag Value 0.06 IU/mL [facility] Comment on above: Performed By: #### 1 [address]6024 ####[address] [place], [place] [address] QFT TB2 Ag Value 0.04 IU/mL Normal [facility] Comment on above: Performed By: #### 1 87770 ####[address] [place], [place] [address] QFT-TB Gold Plus Clt Inc Negative Normal Negative [facility] Comment on above: Result Comment: No r esponse to M tuberculosis antigens detected. Infection with M tuberculosis is unlikely, but high risk individuals should be considered for additional testing (ATS/IDSA/CDC Clinical Practice Guidelines, 2017). The reference range is an Antigen minus Nil result of <0.35 IU/mL. The specimen received for QuantiFERON testing was incubated by the ordering institution. Specific procedures outlined in our Directory of Services and in the package insert for the QuantiFERON Gold (In Tube) test must be followed to enable for proper stimulation of cells for the production of interferon gamma. Chemiluminescence immunoassay methodology Performed At: [facility] [id number] Joe Deleon PhD Ph:[phone] Performed By: #### 1 99385 ####[address] [place], [place] [address] US ABDOMEN COMPLETEon 2024 US ABDOMEN COMPLETE ORIGINAL EXAMINATION: COMPLETE ABDOMINAL ULTRASOUND 09/20/2024 8:23 am TECHNIQUE: This report is based on interpretation of permanently recorded ultrasound images. COMPARISON: None. HISTORY: ORDERING SYSTEM PROVIDED HISTORY: Reason for Exam: ELEVATED LIVER ENZYMES FINDINGS: LIVER: The liver demonstrates normal echogenicity without evidence of intrahepatic biliary ductal dilatation. No focal lesion is seen. The main portal vein demonstrates antegrade flow. BILIARY SYSTEM: Gallbladder is unremarkable without evidence of pericholecystic fluid, wall thickening or stones. Negative sonographic Majano's sign. Common bile duct is within normal limits measuring 3.7 mm. KIDNEYS: The kidneys are unremarkable in appearance without evidence of hydronephrosis. The right kidney measures 10 x 5.4 x 3.8 cm. The left kidney measures 10.4 x 4.5 x 4.3 cm. PANCREAS: Visualized portions of the pancreas are unremarkable. SPLEEN: The spleen is unremarkable in appearance. Spleen is within normal limits in size. Suboptimal evaluation of the IVC and aorta. The visualized portions are unremarkable. OTHER: No evidence of ascites. IMPRESSION: Unremarkable abdominal ultrasound. I have personally reviewed the images of this examination and agree with the resident's findings and interpretation. Interpreted by: Chris Jacome DO Preliminary Report By: Jose A Storey Electronically signed By Chris Jacome DO Dictated Date: 09/20/2024 9:18:21 AM Prelim Date: 09/20/2024 9:30:58 AM Sign Date: 09/20/2024 9:30:58 AM Ordering Provider: CASANDRA TURNER [facility] Bilirubin Test strip Ql (U)O rdered By: Casandra Turner on 09-14-2024 Bilirubin Ql (U) Negative Negative [facility] Ketones Test strip Ql (U)Ord ered By: Casandra Turner on 09-14-2024 Ketones Ql (U) Negative Negative [facility] Nitrite Test strip Ql (U)Ord ered By: Casandra Turner on 09-14-2024 Nitrite Ql (U) Negative Negative [facility] Protein Test strip Ql (U)Ord ered By: Casandra Turner on 09-14-2024 Protein Ql (U) 15 mg/dl High Negative [facility] Urinalysis, Routine (Dipstic k)on 09-14-2024 BILIRUBIN URINE Negative Normal Negative [facility] Comment on above: Order Comment: Urine , Random Performed By: #### L 3890.6301, L400.2010, L3890.6202, L3890.6102, L500.4050, L501.0900, L4500.0100, L100.0100 #### [facility] [address] [place], [address] Clarity (U) Clear Normal Clear [facility] Comment on above: Order Comment: Urine , Random Performed By: #### L 3890.6301, L400.2010, L3890.6202, L3890.6102, L500.4050, L501.0900, L4500.0100, L100.0100 #### [facility] [address] [place], [address] Color (U) Yellow Normal Yellow [facility] Comment on above: Order Comment: Urine , Random Performed By: #### L 3890.6301, L400.2010, L3890.6202, L3890.6102, L500.4050, L501.0900, L4500.0100, L100.0100 #### [facility] [address] [place], [address] GLUCOSE, UR Normal Normal Normal [facility] Comment on above: Order Comment: Urine , Random Performed By: #### L 3890.6301, L400, L3890.6202, L3890.6102, L500.4050, L501.0900, L4500.0100, L100.0100 #### [facility] [address] [place], [address] KETONE UR Negative Normal Negative [facility] Comment on above: Order Comment: Urine , Random Performed By: #### L 3890.6301, L4, L3890.6202, L3890.6102, L500.4050, L501.0900, L4500.0100, L100.0100 #### [facility] [address] [place], [address] LEUK ESTERASE 500 /ul Abnormal Negative [facility] Comment on above: Order Comment: Urine , Random Performed By: #### L 3890.6301, L4, L3890.6202, L3890.6102, L500.4050, L501.0900, L4500.0100, L100.0100 #### [facility] [address] [place], [address] Nitrite Ql (U) Negative Normal Negative [facility] Comment on above: Order Comment: Urine , Random Performed By: #### L 3890.6301, L400, L3890.6202, L3890.6102, L500.4050, L501.0900, L4500.0100, L100.0100 #### [facility] [address] [place], [address] OCCULT BLOOD-UR 10 /ul Abnormal Negative [facility] Comment on above: Order Comment: Urine , Random Performed By: #### L 3890.6301, L400.2010, L3890.6202, L3890.6102, L500.4050, L501.0900, L4500.0100, L100.0100 #### [facility] [address] [place], [address] pH UR 6.5 Normal 5.0 - 8.0 [facility] Comment on above: Order Comment: Urine , Random Performed By: #### L 3890.6301, L400, L3890.6202, L3890.6102, L500.4050, L501.0900, L4500.0100, L100.0100 #### [facility] [address] [place], [address] PROT DIPSTX 15 mg/dl Abnormal Negative [facility] Comment on above: Order Comment: Urine , Random Performed By: #### L 3890.6301, L400.2010, L3890.6202, L3890.6102, L500.4050, L501.0900, L4500.0100, L100.0100 #### [facility] [address] [place], [address] SP.GR. DIPSTX 1.015 Normal 1.002-1.030 [facility] Comment on above: Order Comment: Urine , Random Performed By: #### L 3890.6301, L400.2010, L3890.6202, L3890.6102, L500.4050, L501.0900, L4500.0100, L100.0100 #### [facility] [address] [place], [address] UROBILI Normal Normal Normal [facility] Comment on above: Order Comment: Urine , Random Performed By: #### L 3890.6301, L400, L3890.6202, L3890.6102, L500.4050, L501.0900, L4500.0100, L100.0100 #### [facility] [address] [place], [address] Urine clarityOrdered By: Marlo Turner on 09-14-2024 Clarity (U) Clear Clear [facility] Urine color determinationOrd ered By: Casandra Turner on 09-14-2024 Color (U) Yellow Yellow [facility] Urine glucose detectionOrder ed By: Casandra Turner on 09-14-2024 Glucose Ql (U) Normal mg/dl Normal [facility] Urine leukocyte esterase det ection by dipstickOrdered By: Casandra Turner on 09-14-2024 Leukocyte esterase Test strip Ql (U) 500 /ul High Negative [facility] Urine pHOrdered By: Casandra parrish on 09-14-2024 pH (U) 6.5 [pH] 5.0 - 8.0 [facility] Urine specific gravity measu rementOrdered By: Casandra Turner on 09-14-2024 Specific gravity (U) [Rel density] 1.015 1.002-1.030 [facility] Urine urobilinogen measureme ntOrdered By: Casandra Turner on 09-14-2024 Urobilinogen Ql (U) Normal mg/dl Normal [facility] Lupus Anticoagulant Compon 0 - aPTT Coag (Bld) [Time] 42.3 s Normal 0.0-43.5 [facility] Comment on above: Performed By: #### L 3890.6301, L4, L3890.6202, L3890.6102, L500.4050, L501.0900, L4500.0100, L100.0100 #### [facility] [address] [place], [place], [id number] DILUTE PT (dPT) 40.3 sec Normal 0.0-47.6 [facility] Comment on above: Performed By: #### L 3890.6301, L400.2010, L3890.6202, L3890.6102, L500.4050, L501.0900, L4500.0100, L100.0100 #### [facility] [address] [place], [address] dPT Conf. Ratio 1.13 Ratio Normal 0.00-1.34 [facility] Comment on above: Performed By: #### L 3890.6301, L4, L3890.6202, L3890.6102, L500.4050, L501.0900, L4500.0100, L100.0100 #### [facility] [address] [place], [place], [id number] DRVVT 44.3 sec Normal 0.0-47.0 [facility] Comment on above: Performed By: #### L 3890.6301, L4, L3890.6202, L3890.6102, L500.4050, L501.0900, L4500.0100, L100.0100 #### [facility] [address] [place], [address] Interpretation Comment: Normal . [facility] Comment on above: Result Comment: No l upus anticoagulant was detected. Performed at: - [facility] [id number] Banquet Waiter/Waitress: Clement Adorno MD, Phone: [phone] Performed By: #### L 3890.6301, L4, L3890.6202, L3890.6102, L500.4050, L501.0900, L4500.0100, L100.0100 #### [facility] [address] [place], [place], [id number] THROMBIN TIME 17.5 sec Normal 0.0-23.0 [facility] Comment on above: Performed By: #### L 3890.6301, L400, L3890.6202, L3890.6102, L500.4050, L501.0900, L4500.0100, L100.0100 #### [facility] [place], [address] Absolute lymphocyte countOrd ered By: Casandra Turner on 08-24-2024 Lymphocytes Auto (Unsp spec) [#/Vol] 1.93 10*3/uL 0.83-4.51 [facility] Absolute neutrophil countOrd ered By: Casandra Turner on 08-24-2024 Neutrophils (Bld) [#/Vol] 5.1 10*3/uL 2.0-7.7 [facility] Anion gap in Serum or Plasma Ordered By: Casandra Turner on 08-24-2024 Anion gap [Moles/Vol] 15 mmol/L - [facility] Automated lymphocyte count a s percentage of total leukocytesOrdered By: Casandra Turner on 08-24-2024 Lymphocytes/100 WBC Auto (Unsp spec) 24.9 % -41 [facility] BUN/creatinine ratioOrdered By: Casandra Turner on 08-24-2024 Urea nitrogen/Creatinine [Mass ratio] 29.1 mg/mg High 10-20 [facility] Basophil percentageOrdered B y: Casandra Turner on 08-24-2024 Basophils/100 WBC (Bld) 0.6 % 0-1 [facility] Bilirubin Test strip Ql (U)O rdered By: Casandra Turner on 08-24-2024 Bilirubin Ql (U) Negative Negative [facility] Bilirubin, totalOrdered By: Casandra Turner on 08-24-2024 Bilirubin [Mass/Vol] 0.22 mg/dL 0.00-1.30 [facility] CBC W/Diff, Automatedon 08-01 Absolute Lymph 1.93 X10 3/uL Normal 0.83-4.51 [facility] Comment on above: Performed By: #### L 3890.630, L4, L3890.6202, L3890.6102, L500.4050, L501.0900, L4500.0100, L100.0100 #### [facility] [address] [place] [place], [address] Absolute Neut 5.1 X10 3/uL Normal 2.0-7.7 [facility] Comment on above: Performed By: #### L 3890.6301, L4, L3890.6202, L3890.6102, L500.4050, L501.0900, L4500.0100, L100.0100 #### [facility] [address] [place], [address] Basophils/100 WBC (Bld) 0.6 % Normal 0-1 [facility] Comment on above: Performed By: #### L 3890.6301, , L3890.6202, L3890.6102, L500.4050, L501.0900, L4500.0100, L100.0100 #### [facility] [address] [place], [address] Eosinophils/100 WBC (Bld) 1.4 % Normal 0-5 [facility] Comment on above: Performed By: #### L 3890.6301, , L3890.6202, L3890.6102, L500.4050, L501.0900, L4500.0100, L100.0100 #### [facility] [address] [place], [address] Erythrocyte distribution width (RBC) [Ratio] 12.7 % Normal 11.6-14.6 [facility] Comment on above: Performed By: #### L 3890.6301, L4, L3890.6202, L3890.6102, L500.4050, L501.0900, L4500.0100, L100.0100 #### [facility] [address] [place], [address] Hematocrit (Bld) [Volume fraction] 34.9 % Low 37-47 [facility] Comment on above: Performed By: #### L 3890.6301, L400, L3890.6202, L3890.6102, L500.4050, L501.0900, L4500.0100, L100.0100 #### [facility] [address] [place], [address] Hemoglobin (Bld) [Mass/Vol] 11.8 g/dL Low 12.0-15.0 [facility] Comment on above: Performed By: #### L 3890.6301, L4, L3890.6202, L3890.6102, L500.4050, L501.0900, L4500.0100, L100.0100 #### [facility] [address] [place], [address] IG% 0.300 Normal 0.0-0.9 [facility] Comment on above: Result Comment: IG% - Immature Granulocytes (promyelocytes, myelocytes and metamyelocytes) > 1% indicates that a LEFT SHIFT is Present. Performed By: #### L 3890.6301, L4, L3890.6202, L3890.6102, L500.4050, L501.0900, L4500.0100, L100.0100 #### [facility] [address] [place], [address] Lymphocytes/100 WBC (Bld) 24.9 % Normal 19-41 [facility] Comment on above: Performed By: #### L 3890.6301, L4, L3890.6202, L3890.6102, L500.4050, L501.0900, L4500.0100, L100.0100 #### [facility] [address] [place], [address] MCH (RBC) [Entitic mass] 26.5 pg Low 27.0-32.0 [facility] Comment on above: Performed By: #### L 3890.6301, L4, L3890.6202, L3890.6102, L500.4050, L501.0900, L4500.0100, L100.0100 #### [facility] [address] [place], [address] MCHC (RBC) [Mass/Vol] 33.8 g/dL Normal 32-36 [facility] Comment on above: Performed By: #### L 3890.6301, L4, L3890.6202, L3890.6102, L500.4050, L501.0900, L4500.0100, L100.0100 #### [facility] [address] [place], [address] MCV (RBC) [Entitic vol] 78.3 fL Low 81-99 [facility] Comment on above: Performed By: #### L 3890.6301, L4, L3890.6202, L3890.6102, L500.4050, L501.0900, L4500.0100, L100.0100 #### [facility] [address] [place], [address] Monocytes/100 WBC (Bld) 7.6 % Normal 0-10 [facility] Comment on above: Performed By: #### L 3890.6301, L4, L3890.6202, L3890.6102, L500.4050, L501.0900, L4500.0100, L100.0100 #### [facility] [address] [place], [address] Neutrophils/100 WBC (Bld) 65.2 % Normal 47-70 [facility] Comment on above: Performed By: #### L 3890.6301, L4, L3890.6202, L3890.6102, L500.4050, L501.0900, L4500.0100, L100.0100 #### [facility] [address] [place], [address] Nucleated RBC (Bld) [#/Vol] 0 10*3/uL Normal 0-5 [facility] Comment on above: Performed By: #### L 3890.6301, L4, L3890.6202, L3890.6102, L500.4050, L501.0900, L4500.0100, L100.0100 #### [facility] [address] [place], [address] Platelet mean volume (Bld) [Entitic vol] 8.9 fL Normal 6.2-12.0 [facility] Comment on above: Performed By: #### L 3890.6301, , L3890.6202, L3890.6102, L500.4050, L501.0900, L4500.0100, L100.0100 #### [facility] [address] [place], [address] Platelets (Bld) [#/Vol] 433 10*3/uL Normal 150-450 [facility] Comment on above: Performed By: #### L 3890.6301, L4, L3890.6202, L3890.6102, L500.4050, L501.0900, L4500.0100, L100.0100 #### [facility] [address] [place], [address] RBC (Bld) [#/Vol] 4.46 10*6/uL Normal 4.2-5.4 [facility] Comment on above: Performed By: #### L 3890.6301, L4, L3890.6202, L3890.6102, L500.4050, L501.0900, L4500.0100, L100.0100 #### [facility] [address] [place], [address] RDW SD 36.1 fl Normal 35.1-43.9 [facility] Comment on above: Performed By: #### L 3890.6301, L400.2010, L3890.6202, L3890.6102, L500.4050, L501.0900, L4500.0100, L100.0100 #### [facility] [address] [place], [address] WBC (Bld) [#/Vol] 7.8 10*3/uL Normal 4.4-11.0 [facility] Comment on above: Performed By: #### L 3890.6301, L4, L3890.6202, L3890.6102, L500.4050, L501.0900, L4500.0100, L100.0100 #### [facility] [address] [place], [address] Carbon dioxide, total [Moles /volume] in Central venous bloodOrdered By: Casandra Turner on 08-24-2024 CO2 [Moles/Vol] 21.6 mmol/L 21.0-32.0 [facility] Chloride assayOrdered By: Pollo Turner on 08-24-2024 Chloride [Moles/Vol] 101 mmol/L 98-108 [facility] Comprehensive Metabolic Prof ilon 08-24-2024 Albumin [Mass/Vol] 4.3 g/dL Normal 3.5-5.0 [facility] Comment on above: Performed By: #### L 3890.6301, L400.2010, L3890.6202, L3890.6102, L500.4050, L501.0900, L4500.0100, L100.0100 #### [facility] [address] [place], [address] Albumin/Globulin [Mass ratio] 1.0 {ratio} Normal 0.9-2.4 [facility] Comment on above: Performed By: #### L 3890.6301, L400, L3890.6202, L3890.6102, L500.4050, L501.0900, L4500.0100, L100.0100 #### [facility] [address] [place], [address] ALK PHOS 102 U/L Normal 35-104 [facility] Comment on above: Performed By: #### L 3890.6301, L4, L3890.6202, L3890.6102, L500.4050, L501.0900, L4500.0100, L100.0100 #### [facility] [address] [place], [address] ALT [Catalytic activity/Vol] 55 U/L High <=34 [facility] Comment on above: Performed By: #### L 3890.6301, L4, L3890.6202, L3890.6102, L500.4050, L501.0900, L4500.0100, L100.0100 #### [facility] [address] [place], [address] AST [Catalytic activity/Vol] 30 U/L Normal <=31 [facility] Comment on above: Performed By: #### L 3890.6301, L4, L3890.6202, L3890.6102, L500.4050, L501.0900, L4500.0100, L100.0100 #### [facility] [address] [place], [address] Bilirubin [Mass/Vol] 0.22 mg/dL Normal 0.00-1.30 [facility] Comment on above: Performed By: #### L 3890.6301, L4, L3890.6202, L3890.6102, L500.4050, L501.0900, L4500.0100, L100.0100 #### [facility] [address] [place], [address] BUN/CRE 29.1 RATIO High 10-20 [facility] Comment on above: Performed By: #### L 3890.6301, L400.2010, L3890.6202, L3890.6102, L500.4050, L501.0900, L4500.0100, L100.0100 #### [facility] [address] [place], [address] Calcium [Mass/Vol] 9.9 mg/dL Normal 7.6-11.0 [facility] Comment on above: Performed By: #### L 3890.6301, L4, L3890.6202, L3890.6102, L500.4050, L501.0900, L4500.0100, L100.0100 #### [facility] [address] [place], [address] Chloride [Moles/Vol] 101 mmol/L Normal 98-108 [facility] Comment on above: Performed By: #### L 3890.6301, L400.2010, L3890.6202, L3890.6102, L500.4050, L501.0900, L4500.0100, L100.0100 #### [facility] [address] [place], [address] CO2 [Moles/Vol] 21.6 mmol/L Normal 21.0-32.0 [facility] Comment on above: Performed By: #### L 3890.6301, L400.2010, L3890.6202, L3890.6102, L500.4050, L501.0900, L4500.0100, L100.0100 #### [facility] [address] [place], [address] Creatinine [Mass/Vol] 0.41 mg/dL Low 0.70-1.20 [facility] Comment on above: Performed By: #### L 3890.6301, L400, L3890.6202, L3890.6102, L500.4050, L501.0900, L4500.0100, L100.0100 #### [facility] [address] [place], [address] GAP 15 Normal 5-15 [facility] Comment on above: Performed By: #### L 3890.6301, L4, L3890.6202, L3890.6102, L500.4050, L501.0900, L4500.0100, L100.0100 #### [facility] [address] [place], [address] GFR/1.73 sq M.predicted among non-blacks MDRD (S/P/Bld) [Vol rate/Area] 145 mL/min/{1.73_m2} Normal >60 [facility] Comment on above: Result Comment: mL/m in/1.73m2 CKD-EPI Creatinine Equation (2020) Performed By: #### L 3890.6301, , L3890.6202, L3890.6102, L500.4050, L501.0900, L4500.0100, L100.0100 #### [facility] [address] [place], [address] Globulin (S) [Mass/Vol] 4.3 g/dL High 2.2-4.2 [facility] Comment on above: Performed By: #### L 3890.6301, L400, L3890.6202, L3890.6102, L500.4050, L501.0900, L4500.0100, L100.0100 #### [facility] [address] [place], [address] Glucose [Mass/Vol] 91 mg/dL Normal 70-99 [facility] Comment on above: Performed By: #### L 3890.6301, L400, L3890.6202, L3890.6102, L500.4050, L501.0900, L4500.0100, L100.0100 #### [facility] [address] [place], [address] Potassium [Moles/Vol] 3.8 mmol/L Normal 3.3-5.1 [facility] Comment on above: Performed By: #### L 3890.6301, L4, L3890.6202, L3890.6102, L500.4050, L501.0900, L4500.0100, L100.0100 #### [facility] [address] [place], [address] Sodium [Moles/Vol] 137 mmol/L Normal 133-145 [facility] Comment on above: Performed By: #### L 3890.6301, L4, L3890.6202, L3890.6102, L500.4050, L501.0900, L4500.0100, L100.0100 #### [facility] [address] [place], [address] T PROT 8.6 g/dL High 5.9-8.4 [facility] Comment on above: Performed By: #### L 3890.6301, L4, L3890.6202, L3890.6102, L500.4050, L501.0900, L4500.0100, L100.0100 #### [facility] [address] [place], [address] Urea nitrogen [Mass/Vol] 12 mg/dL Normal 4-19 [facility] Comment on above: Performed By: #### L 3890.6301, L4, L3890.6202, L3890.6102, L500.4050, L501.0900, L4500.0100, L100.0100 #### [facility] [address] [place], [place], [id number] Dilute Kurt's viper venom timeOrdered By: Casandra Turner on 08-24-2024 dRVVT Coag (PPP) [Time] 44.3 s 0.0-47.0 [facility] EXAGENon 08-24-2024 EXAGEN MAILED SPECIMEN Normal [facility] Comment on above: Performed By: #### L 801.1549 #### [facility] [address] [place], [place], [address] Eosinophil percentageOrdered By: Casandra Turner on 08-24-2024 Eosinophils/100 WBC (Bld) 1.4 % 0-5 [facility] Erythrocyte distribution wid th ratioOrdered By: Casandra Turner on 08-24-2024 Erythrocyte distribution width (RBC) [Ratio] 12.7 % 11.6-14.6 [facility] Erythrocyte distribution wid th standard deviationOrdered By: Casandra Turner on 08-24-2024 Erythrocyte distribution width (RBC) [Ratio] 36.1 fl 35.1-43.9 [facility] Glomerular filtration rate ( GFR) estimation/1.73 sq m using serum, plasma, or whole bOrdered By: Casandra Turner on 08-24-2024 GFR/1.73 sq M.predicted among non-blacks MDRD (S/P/Bld) [Vol rate/Area] 145 mL/min/{1.73_m2} >60 [facility] Comment on above: mL/min/1.73m2 CKD-EP I Creatinine Equation (2020) Hematocrit Auto (Bld) [Volum e fraction]Ordered By: Casandra Turner on 08-24-2024 Hematocrit (Bld) [Volume fraction] 34.9 % Low 37-47 [facility] Hemoglobin measurementOrdere d By: Casandra Turner on 08-24-2024 Hemoglobin (Bld) [Mass/Vol] 11.8 g/dL Low 12.0-15.0 [facility] Hepatitis B Surface Antibody on 08-24-2024 HEP B Surf Ab REAC Normal [facility] Comment on above: Result Comment: <8.5 mIU/mL: Non-Reactive 8.5<= x <11.5 mIU/mL: Indeterminate >=11.5 mIU/mL: Reactive Non Reactive: Inconsistent with immunity less than <10 mIU/mL Reactive: Consistent with immunity greater than or equal to 10 mIU/mL Performed By: #### L 3890.6301, L400.2010, L3890.6202, L3890.6102, L500.4050, L501.0900, L4500.0100, L100.0100 #### [facility] [address] [place], [address] Hepatitis C Antibodyon 08-24 Hepatitis C Ab Non-Reactive Normal Nonreactive [facility] Comment on above: Result Comment: Reac tive: Presumptive evidence of antibodies to HCV. Follow CDC recommendations for supplemental testing. Non-Reactive: Antibodies to HCV were not detected; does not exclude the possibility of exposure to HCV Reactive Results are presumptive evidence of antibodies to HCV. Follow CDC recommendations for supplemental testing. Order confirmation testing: HCV Quant by PCR testing - HCVPCR #[id number] Non Reactive: < 0.8 Equivocal: >/= 0.8 to < 1.0 Reactive: >/= 1.0 The CDC requires that a reactive/equivocal HCV antibody result be sent out for confirmation. HCV Quant by PCR testing. Performed By: #### L 3890.6301, L400, L3890.6202, L3890.6102, L500.4050, L501.0900, L4500.0100, L100.0100 #### [facility] [address] [place], [address] Immature granulocytes/100 WB C Auto (Bld)Ordered By: Casandra Turner on 08-24-2024 Immature granulocytes/100 WBC (Bld) 0.300 % 0.0-0.9 [facility] Comment on above: IG% - Immature Granu locytes (promyelocytes, myelocytes and metamyelocytes) > 1% indicates that a LEFT SHIFT is Present. Ketones Test strip Ql (U)Ord ered By: Casandra Turner on 08-24-2024 Ketones Ql (U) Negative Negative [facility] L3890.6102on 08-24-2024 HEP B Surf Ag Non-Reactive Normal Nonreactive [facility] Comment on above: Result Comment: Reac tive: Presumptive evidence of HBV. Repeatedly reactive samples must be confirmed using a neutralization test ([employer] HBsAg Confirmatory Test) Non-Reactive: HBsAg not detected; does not exclude the possibility of exposure to HBV Performed By: #### L 3890.6301, L400.2011, L3890.6202, L3890.6102, L500.4050, L501.0900, L4500.0100, L100.0100 #### [facility] [address] [place], [address] Laboratory - Chemistry and C hemistry - challengeOrdered By: Casandra Turner on 08-24-2024 AST [Catalytic activity/Vol] 30 U/L <32 [facility] Laboratory - Microbiology an d Antimicrobial susceptibilityOrdered By: Casandra Turner on 08-24-2024 HBV surface Ag Ql (S) Non-Reactive Nonreactive [facility] Comment on above: Reactive: Presumptiv e evidence of HBV. Repeatedly reactive samples must be confirmed using a neutralization test ([employer] HBsAg Confirmatory Test)Non-Reactive: HBsAg not detected; does not exclude the possibility of exposure to HBV MCV (mean corpuscular volume ) determinationOrdered By: Casandra Turner on 08-24-2024 MCV (RBC) [Entitic vol] 78.3 fL Low 81-99 [facility] Mean corpuscular hemoglobin (MCH) determinationOrdered By: aCsandra Turner on 08-24-2024 MCH (RBC) [Entitic mass] 26.5 pg Low 27.0-32.0 [facility] Mean corpuscular hemoglobin concentration (MCHC) determinationOrdered By: Casandra Turner on 08-24-2024 MCHC (RBC) [Mass/Vol] 33.8 g/dL 32-36 [facility] Mean platelet volume determi nationOrdered By: Casandra Turner on 08-24-2024 Platelet mean volume (Bld) [Entitic vol] 8.9 fL 6.2-12.0 [facility] Monocyte percentageOrdered B y: Casandra Turner on 08-24-2024 Monocytes/100 WBC (Bld) 7.6 % 0-10 [facility] Neutrophil percentageOrdered By: Casandra Turner on 08-24-2024 Neutrophils/100 WBC (Bld) 65.2 % 47-70 [facility] Nitrite Test strip Ql (U)Ord ered By: Casandra Turner on 08-24-2024 Nitrite Ql (U) Negative Negative [facility] Nucleated red blood cell per centageOrdered By: Casandra Turner on 08-24-2024 Nucleated RBC/100 WBC (Bld) [Ratio] 0 % 0-5 [facility] Platelet countOrdered By: Pollo Turner on 08-24-2024 Platelets (Bld) [#/Vol] 433 10*3/uL 150-450 [facility] Potassium measurement (mass/ volume)Ordered By: Casandra Turner on 08-24-2024 Potassium (Unsp spec) [Mass/Vol] 3.8 mmol/L 3.3-5.1 [facility] Protein Test strip Ql (U)Ord ered By: Casandra Turner on 08-24-2024 Protein Ql (U) 30 mg/dl High Negative [facility] Protein+Creatinine Ratio,Uri neon 08-24-2024 PROT:CRE RATIO 137 mg/g CRE Normal 0-200 [facility] Comment on above: Performed By: #### L 3890.6301, L4, L3890.6202, L3890.6102, L500.4050, L501.0900, L4500.0100, L100.0100 #### [facility] [address] [place], [place], [address] Protein (U) [Mass/Vol] 14.2 mg/dL High 0.0-12.0 [facility] Comment on above: Performed By: #### L 3890.6301, , L3890.6202, L3890.6102, L500.4050, L501.0900, L4500.0100, L100.0100 #### [facility] [place], [address] RBC Auto (Bld) [#/Vol]Ordere d By: Casandra Turner on 08-24-2024 RBC (Bld) [#/Vol] 4.46 10*6/uL 4.2-5.4 [facility] Random urine creatinine geraldine urement (mass/volume)Ordered By: Casandra Turner on 08-24-2024 Creatinine Unsp time (U) [Mass/Vol] 104.00 mg/dL 28.00-217.00 [facility] Serum creatinine measurement (mass/volume)Ordered By: Casandra Turner on 08-24-2024 Creatinine [Mass/Vol] 0.41 mg/dL Low 0.70-1.20 [facility] Serum globulin measurementOr dered By: Casandra Turner on 08-24-2024 Globulin (S) [Mass/Vol] 4.3 g/dL High 2.2-4.2 [facility] Serum glucose measurement (m ass/volume)Ordered By: Casandra Turner on 08-24-2024 Glucose [Mass/Vol] 91 mg/dL 70-99 [facility] Serum hepatitis B virus surf cortney antibody detectionOrdered By: Casandra Turner on 08-24-2024 HBV surface Ab Ql (S) REAC [facility] Comment on above: <8.5 mIU/mL: Non-Jayne ctive8.5<= x <11.5 mIU/mL: Indeterminate>=11.5 mIU/mL: Reactive Non Reactive: Inconsistent with immunity less than <10 mIU/mL Reactive: Consistent with immunity greater than or equal to 10 mIU/mL Serum or plasma alanine england otransferase (ALT) measurementOrdered By: Casandra Turner on 08-24-2024 ALT [Catalytic activity/Vol] 55 U/L High <35 [facility] Serum or plasma albumin geraldine urement (mass/volume)Ordered By: Casandra Turner on 08-24-2024 Albumin [Mass/Vol] 4.3 g/dL 3.5-5.0 [facility] Serum or plasma albumin/glob ulin mass ratioOrdered By: Casandra Turner on 08-24-2024 Albumin/Globulin [Mass ratio] 1.0 {ratio} 0.9-2.4 [facility] Serum or plasma alkaline nika sphatase measurementOrdered By: Casandra Turner on 08-24-2024 ALP [Catalytic activity/Vol] 102 U/L 35-104 [facility] Serum or plasma calcium geraldine urement (mass/volume)Ordered By: Casandra Turner on 08-24-2024 Calcium [Mass/Vol] 9.9 mg/dL 7.6-11.0 [facility] Serum or plasma urea nitroge n measurement (mass/volume)Ordered By: Casandra Turner on 08-24-2024 Urea nitrogen [Mass/Vol] 12 mg/dL 4-19 [facility] Sodium levelOrdered By: Enid Turner on 08-24-2024 Sodium [Moles/Vol] 137 mmol/L 133-145 [facility] Thrombin timeOrdered By: Marlo Turner on 08-24-2024 Thrombin time Coag (PPP) [Time] 17.5 sec 0.0-23.0 [facility] Total proteinOrdered By: Marlo Turner on 08-24-2024 Protein [Mass/Vol] 8.6 g/dL High 5.9-8.4 [facility] Urinalysis, Routine (Dipstic k)on 08-24-2024 BILIRUBIN URINE Negative Normal Negative [facility] Comment on above: Order Comment: CLEAN CATCH Performed By: #### L 3890.6301, L400, L3890.6202, L3890.6102, L500.4050, L501.0900, L4500.0100, L100.0100 #### [facility] [address] [place], [address] Clarity (U) Clear Normal Clear [facility] Comment on above: Order Comment: CLEAN CATCH Performed By: #### L 3890.6301, L400.2010, L3890.6202, L3890.6102, L500.4050, L501.0900, L4500.0100, L100.0100 #### [facility] [address] [place], [address] Color (U) Yellow Normal Yellow [facility] Comment on above: Order Comment: CLEAN CATCH Performed By: #### L 3890.6301, L400.2010, L3890.6202, L3890.6102, L500.4050, L501.0900, L4500.0100, L100.0100 #### [facility] [address] [place], [address] GLUCOSE, UR Normal Normal Normal [facility] Comment on above: Order Comment: CLEAN CATCH Performed By: #### L 3890.6301, L4, L3890.6202, L3890.6102, L500.4050, L501.0900, L4500.0100, L100.0100 #### [facility] [address] [place], [address] KETONE UR Negative Normal Negative [facility] Comment on above: Order Comment: CLEAN CATCH Performed By: #### L 3890.6301, L400, L3890.6202, L3890.6102, L500.4050, L501.0900, L4500.0100, L100.0100 #### [facility] [address] [place], [address] LEUK ESTERASE Negative Normal Negative [facility] Comment on above: Order Comment: CLEAN CATCH Performed By: #### L 3890.6301, L4, L3890.6202, L3890.6102, L500.4050, L501.0900, L4500.0100, L100.0100 #### [facility] [facility] [address] [place], [address] Nitrite Ql (U) Negative Normal Negative [facility] Comment on above: Order Comment: CLEAN CATCH Performed By: #### L 3890.6301, L400.2010, L3890.6202, L3890.6102, L500.4050, L501.0900, L4500.0100, L100.0100 #### [facility] [address] [place], [address] OCCULT BLOOD-UR 25 /ul Abnormal Negative [facility] Comment on above: Order Comment: CLEAN CATCH Performed By: #### L 3890.6301, L400, L3890.6202, L3890.6102, L500.4050, L501.0900, L4500.0100, L100.0100 #### [facility] [address] [place], [address] pH UR 6.5 Normal 5.0 - 8.0 [facility] Comment on above: Order Comment: CLEAN CATCH Performed By: #### L 3890.6301, L4, L3890.6202, L3890.6102, L500.4050, L501.0900, L4500.0100, L100.0100 #### [facility] [address] [place], [address] PROT DIPSTX 30 mg/dl Abnormal Negative [facility] Comment on above: Order Comment: CLEAN CATCH Performed By: #### L 3890.6301, L4, L3890.6202, L3890.6102, L500.4050, L501.0900, L4500.0100, L100.0100 #### [facility] [address] [place], [address] SP.GR. DIPSTX 1.015 Normal 1.002-1.030 [facility] Comment on above: Order Comment: CLEAN CATCH Performed By: #### L 3890.6301, L4, L3890.6202, L3890.6102, L500.4050, L501.0900, L4500.0100, L100.0100 #### [facility] [address] [place], [address] UROBILI Normal Normal Normal [facility] Comment on above: Order Comment: CLEAN CATCH Performed By: #### L 3890.6301, L400.2011, L3890.6202, L3890.6102, L500.4050, L501.0900, L4500.0100, L100.0100 #### [facility] [address] [place], [address] Urine clarityOrdered By: Marlo Turner on 08-24-2024 Clarity (U) Clear Clear [facility] Urine color determinationOrd ered By: Casandra Turner on 08-24-2024 Color (U) Yellow Yellow [facility] Urine glucose detectionOrder ed By: Casandra Turner on 08-24-2024 Glucose Ql (U) Normal mg/dl Normal [facility] Urine leukocyte esterase det ection by dipstickOrdered By: Casandra Turner on 08-24-2024 Leukocyte esterase Test strip Ql (U) Negative Negative [facility] Urine pHOrdered By: Casandra parrish on 08-24-2024 pH (U) 6.5 [pH] 5.0 - 8.0 [facility] Urine protein measurement (m ass/volume)Ordered By: Casandra Turner on 08-24-2024 Protein (U) [Mass/Vol] 14.2 mg/dL High 0.0-12.0 [facility] Urine protein/creatinine mas s ratioOrdered By: Casandra Turner on 08-24-2024 Protein/Creatinine (U) [Mass ratio] 137 mg/g CRE 0-200 [facility] Urine specific gravity measu rementOrdered By: Casandra Turner on 08-24-2024 Specific gravity (U) [Rel density] 1.015 1.002-1.030 [facility] Urine urobilinogen measureme ntOrdered By: Casandra Turner on 08-24-2024 Urobilinogen Ql (U) Normal mg/dl Normal [facility] White blood cell (WBC) count Ordered By: Casandra Turner on 08-24-2024 WBC (Bld) [#/Vol] 7.8 10*3/uL 4.4-11.0 [facility] ANAIFSon 07-21-2024 Antinuclear Ab Pattern Nuclear homogeneous Normal [facility] Comment on above: Result Comment: Perf ormed By: Soni [facility] [address] [place] [address] Banquet Waiter/Waitress: Vance Card III, M.D. CLIA#: [id number] Performed By: #### V IDH, CRP, ANAIFS, ESR ####[place] [address] [place] [address]#### RF ####[place] [address] Antinuclear Ab Screen Positive Abnormal Negative [facility] Comment on above: Result Comment: Anti -nuclear antibody test is used as an aid in diagnosis of systemic autoimmune diseases. Where positive and clinically warranted, follow-up using disease-specific testing is recommended. Low positive titers are not uncommon with advanced age, certain chronic infections, and malignancies among others. Test methodology: Indirect fluorescence immunoassay (IFA) using HEp-2 cells. Performed By: Soni [facility] [address] [place] [address] Banquet Waiter/Waitress: Vance Card III, M.D. CLIA#: [id number] Performed By: #### V IDH, CRP, ANAIFS, ESR ####[place] [address]#### RF ####[place] [address] Antinuclear Ab Titer 1:1280 Normal [facility] Comment on above: Result Comment: Perf ormed By: Soni [facility] [address] [place] [address] Banquet Waiter/Waitress: Vance Card III, M.D. CLIA#: [id number] Performed By: #### V IDH, CRP, ANAIFS, ESR ####[address] [place] [address]#### RF ####[place] [address] RFon 07-21-2024 Rheumatoid Factor 111.1 High <=5.9 [facility] Comment on above: Result Comment: RF [...] tests. These results were obtained with the [employer] QUANTA Lite RF IgM ANG. RF IgM values obtained with different manufacturers' assay methods may not be used interchangeably. The magnitude of the reported IgM levels cannot be correlated to an endpoint titer. Performed By: #### V IDH, CRP, ANAIFS, ESR ####[place] [address]#### RF ####[place] [address] CRPon 07-19-2024 C-Reactive Protein 2.1 mg/dL High 0.0-0.3 [facility] Comment on above: Performed By: #### V IDH, CRP, ANAIFS, ESR #### [place] [address] #### RF #### [place] [address] ESRon 07-19-2024 Erythrocyte Sed Rate 12 mm/hr Normal 0-20 [facility] Comment on above: Performed By: #### V IDH, CRP, ANAIFS, ESR #### [place] [address] #### RF #### [place] [address] LABORATORYOrdered By: SYSTEM SYSTEM on 07-19-2024 25-hydroxyvitamin [...] 07-19-2024 Vit. D 25-Hydroxy 27.9 ng/mL Normal [facility] Comment on above: Result Comment: Inte rpretive Values Based on Total 25(OH) Vitamin D: Deficient <20 ng/mL Insufficient 20 - <30 ng/mL Sufficient 30-100 ng/mL Performed By: #### V IDH, CRP, ANAIFS, ESR #### [address] [address] #### RF #### [address] [address] MUMPSon 06-24-2024 Mumps Ab Negative Normal [facility] Comment on above: Order Comment: Quant [...] By: #### M UMP, RUBEO, RUBIS, VARIS #### [place] [id number] RUBEOon 06-17-2024 Rubeola IgG Ab Negative Normal [facility] Comment on above: Order Comment: Quant [...] testing 10-14 days. Performed By: #### M UMP, RUBEO, RUBIS, VARIS #### [place] [address] VARISon 06-17-[address] Positive Normal [facility] Comment on above: Order Comment: Quant itative IgG Titer Result Comment: INTE RPRETATION OF VARICELLA IMMUNE STATUS IgG BY EIA: Negative: No detectable VZV IgG antibody. Positive: VZV IgG antibody Detected. If clinically indicated, order Varicella IgM to rule out recent infection. Equivocal: Equivocal for antibodies to VZV. Suggest repeat testing in 10-14 days. Performed By: #### M ZOFIA MILLS RUBIS, VARIS #### [place] [address] RUBISon 06-16-[address] Positive Normal Positive [facility] Comment on above: Order Comment: Quant itative IgG Titer Result Comment: This immune status assay detects IgM and/or IgG antibody to Rubella. Interpret results in conjunction with clinical history. POS: Antibody detected; exposure at undetermined recent or distant time. If clinically indicated, order Rubella IGM to rule out recent infection. NEG: No antibody detected. Performed By: #### M ZOFIA MILLS RUBIS, VARIS #### [place] [address] HBSABon 03-03-2024 Hep B Surf Ab 6994.1 mIU/mL Normal >=10.0 [facility] Comment on above: Result Comment: 0 [...] Preparation. Performed By: #### H BSAB #### [place] [address] XR HIP 2-3 VIEWS LEFTon 11-0 XR HIP 2-3 VIEWS LEFT ORIGINAL EXAMINATION: [...] Sign Date: 01/08/2024 3:35:29 AM Ordering Provider: BIMAL [facility] XR HIP 2-3 VIEWS RIGHTon XR [...] Sign Date: 01/08/2024 3:35:29 AM Ordering Provider: [facility] XR SPINE LUMBAR AP/LATon XR SPINE LUMBAR [...] 01/08/2024 3:28:52 AM Ordering Provider: BIMAL [place] [facility] GLUon 01-07-2024 Glucose [Mass/Vol] 88 mg/dL Normal 70-105 [facility] Comment on above: Performed By: #### L IPGRAY, GLU ####[place] [address] [place], [place] [address] LABORATORYOrdered By: Latesha Reece on 01-07-2024 Cholesterol [Mass/Vol] 222 mg/dL High 0 - 200 mg/dL AO ADM SS Comment on above: Interpretive Data: C holesterol Reference Interval: Less than 200 Desirable 200-239 Borderline high risk 240 and above High risk Cholesterol in HDL [Mass/Vol] 56 mg/dL Normal 40 - 60 mg/dL AO ADM SS Cholesterol in LDL [Mass/Vol] 148 mg/dL High 0 - 130 mg/dL AO ADM SS Triglyceride [Mass/Vol] 90 mg/dL Normal 0 - 150 mg/d L AO ADM SS Comment on above: Interpretive Data: T riglyceride Reference Interval: Less than 150 Normal 150-199 Borderline high risk 200-499 High risk 500 or higher Very high risk LABORATORYOrdered By: SYSTEM SYSTEM on 01-07-2024 Glucose [Mass/Vol] 88 mg/dL Normal 70 - 105 mg/dL AO ADM SS LIPIDon 01-07-2024 Cholesterol [Mass/Vol] 222 mg/dL High 0-200 [facility] Comment on above: Result Comment: Chol esterol Reference Interval: Less than 200 Desirable 200-239 Borderline high risk 240 and above High risk Performed By: #### L IPID, GLU ####[facility] [place] [id number] Cholesterol in HDL [Mass/Vol] 56 mg/dL Normal 40-60 [facility] Comment on above: Performed By: #### L IPID, GLU ####[id number] [place], [place] [address] Cholesterol in LDL [Mass/Vol] 148 mg/dL High 0-130 [facility] Comment on above: Performed By: #### L IPID, GLU ####[facility] [place], [place] [address] Triglyceride [Mass/Vol] 90 mg/dL Normal 0-150 [facility] Comment on above: Result Comment: Trig lyceride Reference Interval: Less than 150 Normal 150-199 Borderline high risk 200-499 High risk 500 or higher Very high risk Performed By: #### L IPID, GLU ####[id number] [place] [address] LABORATORYOrdered By: SYSTEM SYSTEM on 09-19-2023 25-hydroxyvitamin D3 [Mass/Vol] 58.5 ng/mL Invalid Interpretation Code AO ADM SS Comment on above: Interpretive Data: I nterpretive Values Based on Total 25(OH) Vitamin D: Deficient <20 ng/mL Insufficient 20 - <30 ng/mL Sufficient 30-100 ng/mL VIDHon 09-19-2023 Vit. D 25-Hydroxy 58.5 ng/mL Normal [facility] ([place]) Comment on above: Result Comment: Inte rpretive Values Based on Total 25(OH) Vitamin D: Deficient <20 ng/mL Insufficient 20 - <30 ng/mL Sufficient 30-100 ng/mL Performed By: #### V IDH #### [address] [address] RUBEOon 09-18-2023 Rubeola IgG Ab Negative Normal Positive [facility] ([place]) Comment on above: Result Comment: INTE RPRETATION [...] LIPID, ADIFF, CMP, ANEU, FT4, CBC #### [address] [address] RUBISon 09-11-[address] Positive Normal Positive [facility] ([place]) Comment on above: Result Comment: This immune status assay detects IgM and/or IgG antibody to Rubella. Interpret results in conjunction with clinical history. POS: Antibody detected; exposure at undetermined recent or distant time. If clinically indicated, order Rubella IGM to rule out recent infection. NEG: No antibody detected. Performed By: #### V IDH, TSH, LIPID, ADIFF, CMP, ANEU, FT4, CBC #### [place] [address] [place], [place] [address] HBSABon 09-10-2023 Hep B Surf Ab 3.9 mIU/mL Low >=10.0 [facility] ([place] Comment on above: Result Comment: 0 to [...] By: #### H ZOFIA MCFADDEN RUBIS #### [place] [address] COMPLETE BLOOD COUNT WITH DI FFERENTIALon 08-13-2023 Basophils (Bld) [#/Vol] 0.03 10*3/uL Normal 0.02-0.06 [facility] Comment on above: Order Comment: Relea se to patient->Automatic Performed By: #### 1 001 #### NENA Talbert ([id number]) [place] [facility] ([facility] Basophils/100 WBC (Bld) 0.5 % Normal 0.3-0.9 [facility] Comment on above: Order Comment: Relea se to patient->Automatic Performed By: #### 1 001 #### NENA Talbert ([id number]) [facility] ([facility]) [address] Eosinophils (Bld) [#/Vol] 0.04 10*3/uL Normal 0.04-0.27 [facility] Comment on above: Order Comment: Relea se to patient->Automatic Performed By: #### 1 001 #### NENA BACCON W ([id number]) [facility] ([facility]) ONE [address] Eosinophils/100 WBC (Bld) 0.7 % Normal 0.6-3.8 [facility] Comment on above: Order Comment: Relea se to patient->Automatic Performed By: #### 1 001 #### NENA DOOLEY W ([id number]) [facility] ([facility]) ONE [address] Erythrocyte distribution width (RBC) [Ratio] 13.4 % Normal 11.9-14.8 [facility] Comment on above: Order Comment: Relea se to patient->Automatic Performed By: #### 1 001 #### NENA DOOLEY W ([id number]) [facility] ([facility]) ONE [address] Hematocrit (Bld) [Volume fraction] 36.0 % Normal 35.5-44.6 [facility] Comment on above: Order Comment: Relea se to patient->Automatic Performed By: #### 1 001 #### NENA DOOLEY W ([id number]) [facility] ([facility]) ONE [address] Hemoglobin (Bld) [Mass/Vol] 12.4 g/dL Normal 11.4-14.8 [facility] Comment on above: Order Comment: Relea se to patient->Automatic Performed By: #### 1 001 #### NENA BACCON W ([id number]) [facility] ([facility]) ONE [address] Immature granulocytes/100 WBC (Bld) 0.2 % Normal 0.2-0.5 [facility] Comment on above: Order Comment: Relea se to patient->Automatic Result Comment: Charity ture Granulocyte Percent includes promyelocytes, myelocytes,and metamyelocytes. IG% > 1.0 indicates a left shift is present. With automated differentials, bands are included in the neutrophil count and not in the Immature Granulocyte Percent. Performed By: #### 1 001 #### NENA Talbert ([id number]) [place] [facility] ([facility]) ONE [address] Lymphocytes (Bld) [#/Vol] 2.09 10*3/uL Normal 1.51-2.99 [facility] Comment on above: Order Comment: Relea se to patient->Automatic Performed By: #### 1 001 #### NENA DOOLEY W ([id number]) [place] [facility] ([facility]) ONE [address] Lymphocytes/100 WBC (Bld) 36.3 % Normal 21.8-42.1 [facility] Comment on above: Order Comment: Relea se to patient->Automatic Performed By: #### 1 001 #### NENA DOOLEY W ([id number]) [facility] ([facility]) ONE [address] MCH (RBC) [Entitic mass] 28.0 pg Normal 25.7-31.2 [facility] Comment on above: Order Comment: Relea se to patient->Automatic Performed By: #### 1 001 #### NENA DOOLEY W ([id number]) [place] [facility] ([facility]) ONE [address] MCHC 34.4 % High 31.3-34.0 [facility] Comment on above: Order Comment: Relea se to patient->Automatic Performed By: #### 1 001 #### NENA BACCON W ([id number]) [facility] ([facility]) ONE [address] MCV (RBC) [Entitic vol] 81.3 fL Normal 80.7-93.7 [facility] Comment on above: Order Comment: Relea se to patient->Automatic Performed By: #### 1 001 #### NENA ASHFORDCON W ([id number]) [place] [facility] ([facility]) ONE [address] Monocytes (Bld) [#/Vol] 0.40 10*3/uL Normal 0.36-0.77 [facility] Comment on above: Order Comment: Relea se to patient->Automatic Performed By: #### 1 001 #### NENA BACCON W ([id number]) [facility] ([place] ONE [place], [place] [id number] [place] [address] Monocytes/100 WBC (Bld) 7.0 % Normal 5.6-10.2 [facility] Comment on above: Order Comment: Relea se to patient->Automatic Performed By: #### 1 001 #### NENA BACCON W ([id number]) [facility] ([place]) ONE [address] Neutrophils (Bld) [#/Vol] 3.18 10*3/uL Normal 2.43-6.42 [facility] Comment on above: Order Comment: Relea se to patient->Automatic Performed By: #### 1 001 #### NENA BACCON W ([id number]) [facility] ([place]) ONE [address] Neutrophils/100 WBC (Bld) 55.3 % Normal 46.0-68.6 [facility] Comment on above: Order Comment: Relea se to patient->Automatic Performed By: #### 1 001 #### NENA BACCON W ([id number]) [facility] ONE [address] Nucleated RBC/100 WBC (Bld) [Ratio] 0.0 % Normal 0.0-0.0 [facility] Comment on above: Order Comment: Relea se to patient->Automatic Performed By: #### 1 001 #### NENA BACCON W ([id number]) [facility] ONE [address] Platelet mean volume (Bld) [Entitic vol] 9.4 fL Low 9.6-11.9 [facility] Comment on above: Order Comment: Relea se to patient->Automatic Performed By: #### 1 001 #### NENA BACCON W ([id number]) [facility] ([facility] [address] Platelets (Bld) [#/Vol] 307 10*3/uL Normal 150-400 [facility] Comment on above: Order Comment: Relea se to patient->Automatic Performed By: #### 1 001 #### NENA DOOLEY W ([id number]) [facility] ([place]) [address] RBC 4.43 10E12/L Normal 4.03-4.91 [facility] Comment on above: Order Comment: Relea se to patient->Automatic Performed By: #### 1 001 #### NENA DOOLEY W ([id number]) [facility] ([facility]) [address] WBC (Bld) [#/Vol] 5.8 10*3/uL Normal 4.9-10.0 [facility] Comment on above: Order Comment: Relea se to patient->Automatic Performed By: #### 1 001 #### NENA DOOLEY W ([id number]) [facility] ([facility]) [address] Complete Blood Count with Di fferentialOrdered By: Kadie Park on 08-13-2023 Basophils (Bld) [#/Vol] 0.03 10*3/uL [facility] Basophils/100 WBC (Bld) 0.5 % 0.3 - 0.9 % [facility] Eosinophils (Bld) [#/Vol] 0.04 10*3/uL [facility] Eosinophils/100 WBC (Bld) 0.7 % 0.6 - 3.8 % [facility] Erythrocyte distribution width (RBC) [Ratio] 13.4 % 11.9 - 14.8 % [facility] Hematocrit (Bld) [Volume fraction] 36.0 % 35.5 - 44.6 % [facility] Hemoglobin (Bld) [Mass/Vol] 12.4 g/dL 11.4 - 14.8 g/dL [facility] Immature granulocytes/100 WBC (Bld) 0.2 % 0.2 - 0.5 % [facility] Comment on above: Immature Granulocyte Percent includes promyelocytes, myelocytes,and metamyelocytes. IG% > 1.0 indicates a left shift is present. With automated differentials, bands are included in the neutrophil count and not in the Immature Granulocyte Percent. Interpretation and review of laboratory results Abnormal [facility] Lymphocytes (Bld) [#/Vol] 2.09 10*3/uL [facility] Lymphocytes/100 WBC (Bld) 36.3 % 21.8 - 42.1 % [facility] MCH (RBC) [Entitic mass] 28.0 pg 25. 7 - 31.2 pg [facility] MCHC (RBC) [Mass/Vol] 34.4 % High 31.3 - 34.0 % [facility] MCV (RBC) [Entitic vol] 81.3 fL 80.7 - 93.7 fL [facility] Monocytes (Bld) [#/Vol] 0.40 10*3/uL [facility] Monocytes/100 WBC (Bld) 7.0 % 5.6 - 10.2 % [facility] Neutrophils (Bld) [#/Vol] 3.18 10*3/uL [facility] Neutrophils/100 WBC (Bld) 55.3 % 46.0 - 68.6 % [facility] Nucleated RBC/100 WBC (Bld) [Ratio] 0.0 % 0.0 - 0.0 % [facility] Platelet mean volume (Bld) [Entitic vol] 9.4 fL Low 9.6 - 11.9 fL [facility] Platelets (Bld) [#/Vol] 307 10*3/uL [facility] RBC (Bld) [#/Vol] 4.43 10*6/uL [facility] WBC (Bld) [#/Vol] 5.8 10*3/uL [facility] HEPATIC FUNCTION PANELon Albumin [Mass/Vol] 4.4 g/dL Normal 3.5-5.0 [facility] Comment on above: Order Comment: Relea se to patient->Automatic 72673&Blood Performed By: #### M DIFF #### [address] [address] ALP [Catalytic activity/Vol] 46 U/L Normal 43-83 [facility] Comment on above: Order Comment: Relea se to patient->Automatic 57146&Blood Performed By: #### M DIFF #### [address] [address] ALT [Catalytic activity/Vol] 14 U/L Normal <=34 [facility] Comment on above: Order Comment: Relea se to patient->Automatic 59582&Blood Performed By: #### M DIFF #### [address] [address] AST [Catalytic activity/Vol] 21 U/L Normal <=31 [facility] Comment on above: Order Comment: Relea se to patient->Automatic 77444&Blood Performed By: #### M DIFF #### [address] [address] BILI,TOTAL 0.2 MG/DL Normal <=1.0 [facility] Comment on above: Order Comment: Relea se to patient->Automatic 20430&Blood Performed By: #### M DIFF #### [address] [address] Bilirubin.indirect [Mass/Vol] mg/dL Normal <=0.7 [facility] Comment on above: Order Comment: Relea se to patient->Automatic 48834&Blood Performed By: #### M DIFF #### [address] [address] Protein [Mass/Vol] 7.5 g/dL Normal 5.9-8.4 [facility] Comment on above: Order Comment: Relea se to patient->Automatic 60584&Blood Performed By: #### M DIFF #### [address] [address] Hepatic function panelon Albumin BCG dye [Mass/Vol] 4.4 g/dL [facility] ALP [Catalytic activity/Vol] 46 U/L 43 - 83 U/L [facility] ALT With P-5'-P [Catalytic activity/Vol] 14 U/L [facility] - 34 U/L [facility] AST With P-5'-P [Catalytic activity/Vol] 21 U/L [facility] - 31 U/L [facility] Bilirubin [Mass/Vol] 0.2 mg/dL [facility] Bilirubin.direct [Mass/Vol] [facility] Interpretation and review of laboratory results Normal [facility] Protein [Mass/Vol] 7.5 g/dL [facility] LACTATE DEHYDROGENASEon 07-31 LDH [Catalytic activity/Vol] 136 U/L Normal 120-234 [facility] Comment on above: Order Comment: Relea se to patient->Automatic Performed By: #### 2 640 #### NENA Talbert ([id number]) [facility] ([address] Lactate dehydrogenaseOrdered By: Background Lab on 08-13-2023 Interpretation and review of laboratory results Normal [facility] LDH Lactate to pyruvate reaction [Catalytic activity/Vol] 136 U/L 120 - 234 U/L [facility] Progress Noteon 07-06-2023 [employer] Authentication Interface Message Text Patient ID: Neymar Gross is a 18 y.o. female. Her chief complaint(s) include: 18 YEAR WELL CHILD Assessment 1. Routine general medical examination at a health care facility Plan Neymar was seen today for 18 year well [...] from father. 18 YEAR WELL CHILD Home: Neymar eats meals with family, has an adult to turn to for help and is permitted and able to make independent decisions. Neymar has no home risk identified and does not pay the bills. Education: Neymar is in 12th grade and is doing well, is meeting expectations, is getting along with peers and earns A's. 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 Eating: Neymar eats regular meals including fruits and vegetables, eats breakfast, limits fast food, drinks non-sweetened liquids and has a calcium source. Activities & Sports: Neymar has a job ([employer] [facility] and has drivers license. Neymar performs less than 1 hour of physical activity daily, engages in screen time more than 2 hours daily, does not play team sports and does not participate in music programs. Drugs: Neymar does not use tobacco, does not use drugs, does not use alcohol and does not vape. Safety: Neymar has a violence free home, has peer relationships free from violence and uses seat belt. Neymar does not use helmet (doesn't ride bike) and does not use phone/text while driving. Sex: The patient has never had a sexual partner. The patient is interested in males. The patient's sexual orientation is heterosexual. The patient's gender identity is cisgender. Suicidality: Neymar has ways to cope with stress, displays self-confidence, has problems with sleep (sometimes problems falling asleep) and has mood swings (some more moodiness since starting the xulane). Neymar has no depression, has no anxiety, has [...] peer pressure to smoke, drink, use drugs, contraception/practi ce safe sex/ use condoms, practice abstinence- the [...] Screen Concerns: no parent or grandparent with MA angina peripheral or cerebrovascular disease <55 years [...] external ear (more content not included)... Normal [facility] C-Reactive Proteinon 06-10- 024 CRP [Mass/Vol] mg/L Normal 0.0-1.0 [facility] Comment on above: Order Comment: Relea se to patient->Automatic 87640&Blood Result Comment: CRP determinations in neonates should be interpreted with caution. CRP may be elevated in circumstances not associated with inflammation (e.g. difficult delivery, pneumothorax). In premature neonates CRP levels may not rise to abnormal levels even if sepsis is present; some speculate that immature liver function decreases the ability to generate a CRP response. Performed By: #### M DIFF #### [address] [address] C-reactive protein (Lab Tony ect)on 06-11-2023 CRP [Mass/Vol] mg/L 0.0 - 1.0 mg/dL [facility] Comment on above: CRP determinations i [...] Panelon 06-11-2023 Bili, Conjugated <0.2 Normal 0.0-0.7 [facility] Comment on above: Order Comment: Relea se to patient->Automatic 91829&Blood Performed By: #### L IVER #### [address] [address] Albumin [Mass/Vol] 4.2 g/dL Normal 3.5-5.0 [facility] Comment on above: Order Comment: Relea se to patient->Automatic 42555&Blood Performed By: #### L IVER #### [address] [address] ALP [Catalytic activity/Vol] 106 U/L High 43-83 [facility] Comment on above: Order Comment: Relea se to patient->Automatic 32455&Blood Performed By: #### L IVER #### [address] [address] ALT [Catalytic activity/Vol] 111 U/L High 0-34 [facility] Comment on above: Order Comment: Relea se to patient->Automatic 47544&Blood Performed By: #### L IVER #### [address] [address] AST [Catalytic activity/Vol] 49 U/L High 0-31 [facility] Comment on above: Order Comment: Relea se to patient->Automatic 79681&Blood Performed By: #### L IVER #### [address] [address] Bili,Total 0.3 mg/dL Normal 0.0-1.0 [facility] Comment on above: Order Comment: Relea se to patient->Automatic 13635&Blood Performed By: #### L IVER #### [address] [address] Protein [Mass/Vol] 7.5 g/dL Normal 5.9-8.4 [facility] Comment on above: Order Comment: Relea se to patient->Automatic 11202&Blood Performed By: #### L IVER #### [place] [address] Hepatic function panelon Albumin [Mass/Vol] 4.2 g/dL 3.5 - 5.0 g/dL [facility] ALP [Catalytic activity/Vol] 106 U/L High 43 - 83 U/L [facility] ALT [Catalytic activity/Vol] 111 U/L High 0 - 34 U/L [facility] AST [Catalytic activity/Vol] 49 U/L High 0 - 31 U/L [facility] Bilirubin [Mass/Vol] 0.3 mg/dL 0.0 - 1 .0 mg/dL [facility] Bilirubin, Conjugated mg/dL 0.0 - 0.7 mg/dL [facility] Protein [Mass/Vol] 7.5 g/dL 5.9 - 8.4 g/dL [facility] Lactate Dehydrogenaseon 05-31 LDH [Catalytic activity/Vol] 278 U/L High 120-234 [facility] Comment on above: Order Comment: Relea se to patient->Automatic 99706&Blood Performed By: #### L D #### [address] [address] Lactate dehydrogenaseon 05-31 LD 278 U/L High 120 - 234 U/L [facility] No Panel Informationon 06-10 Interpretation and review of laboratory results Abnormal [facility] Release to patient->Automatic [facility] Progress Noteon 06-11-2023 [employer] Authentication Interface Message Text Patient ID: Neymar Gross is a 18 y.o. female. Her chief complaint(s) include: Other (Spleen recheck) Assessment 1. Elevated liver enzymes 2. Splenomegaly 3. Elevated C-reactive protein (CRP) 4. Elevated LDH Plan Neymar was seen today for other. Diagnoses and [...] source Temporal, weight (!) 44.2 kg. Normal [facility] EBV (VCA) IgG Abon 4 EBV VCA IgG, Qualitative Positive Normal [facility] Comment on above: Order Comment: Relea se to patient->Automatic 22826&Blood Result Comment: Refe rence Range: Negative The result suggests recent or past EBV infection. The final interpretation should be done in the context of other EBV serology panel results. Testing Performed: [facility] [address] [place] [address] Performed By: #### E BVIG #### [place] [address] EBV (VCA) IgM [facility] 4 EBV (VCA) IgM Qualitative Negative Normal [facility] Comment on above: Order Comment: Relea se to patient->Automatic 37484&Blood Result Comment: Refe rence Range: Negative No serological evidence of recent EBV infection. Testing Performed: [facility] [address] [place] [address] Performed By: #### E BVIM #### [place] [address] C-Reactive Proteinon 024 C-Reactive Protein 3.8 mg/dL High 0.0-1.0 [facility] Comment on above: Order Comment: Relea se to patient->Automatic 90084&Blood Result Comment: CRP determinations in neonates should be interpreted with caution. CRP may be elevated in circumstances not associated with inflammation (e.g. difficult delivery, pneumothorax). In premature neonates CRP levels may not rise to abnormal levels even if sepsis is present; some speculate that immature liver function decreases the ability to generate a CRP response. Performed By: #### C RP #### [address] [address] C-reactive protein (Lab Tony ect)on 06-05-2023 C-Reactive Protein 3.8 mg/dL High 0.0 - 1.0 mg/dL [facility] Comment on above: CRP determinations i [...] 06-04 Albumin [Mass/Vol] 3.9 g/dL Normal 3.5-5.0 [facility] Comment on above: Order Comment: Relea se to patient->Automatic 58392&Blood Performed By: #### M DIFF #### [address] [address] ALP [Catalytic activity/Vol] 201 U/L High 43-83 [facility] Comment on above: Order Comment: Relea se to patient->Automatic 48459&Blood Performed By: #### M DIFF #### [address] [address] ALT [Catalytic activity/Vol] 124 U/L High 0-34 [facility] Comment on above: Order Comment: Relea se to patient->Automatic 80561&Blood Performed By: #### M DIFF #### [address] [address] AST [Catalytic activity/Vol] 89 U/L High 0-31 [facility] Comment on above: Order Comment: Relea se to patient->Automatic 72416&Blood Performed By: #### M DIFF #### [address] [address] Bili,Total 0.4 mg/dL Normal 0.0-1.0 [facility] Comment on above: Order Comment: Relea se to patient->Automatic 18724&Blood Performed By: #### M DIFF #### [address] [address] Calcium [Mass/Vol] 8.9 mg/dL Normal 7.6-11.0 [facility] Comment on above: Order Comment: Relea se to patient->Automatic 97155&Blood Performed By: #### M DIFF #### [address] [address] CO2 [Moles/Vol] 25.3 mmol/L Normal 22.0-29.0 [facility] Comment on above: Order Comment: Relea se to patient->Automatic 26858&Blood Performed By: #### M DIFF #### [address] [address] Creatinine [Mass/Vol] 0.38 mg/dL Low 0.50-1.00 [facility] Comment on above: Order Comment: Relea se to patient->Automatic 37390&Blood Performed By: #### M DIFF #### [address] [address] Glucose [Mass/Vol] 87 mg/dL Normal 70-99 [facility] Comment on above: Order Comment: Relea se to patient->Automatic 10930&Blood Result Comment: No mireles for Diagnosis of Diabetes: Fasting Specimen (no caloric intake for at least 8 hours): <100 mg/dL Normal 100-125 mg/dL Increased risk for Diabetes >125 mg/dL Diagnostic for Diabetes Random Glucose (any time of day without regard to last meal): > or = 200 mg/dL plus Classic Symptoms of Diabetes Performed By: #### M DIFF #### [address] [address] Protein [Mass/Vol] 6.9 g/dL Normal 5.9-8.4 [facility] Comment on above: Order Comment: Relea se to patient->Automatic 36601&Blood Performed By: #### M DIFF #### [address] [address] Urea nitrogen [Mass/Vol] 9 mg/dL Normal 4-19 [facility] Comment on above: Order Comment: Relea se to patient->Automatic 51742&Blood Performed By: #### M DIFF #### [address] [address] Chloride [Moles/Vol] 103 mmol/L Normal 96-108 [facility] Comment on above: Order Comment: Relea se to patient->Automatic 03007&Blood Performed By: #### M DIFF #### [address] [address] Potassium [Moles/Vol] 3.7 mmol/L Normal 3.3-5.1 [facility] Comment on above: Order Comment: Relea se to patient->Automatic 38396&Blood Performed By: #### M DIFF #### [address] [address] Sodium [Moles/Vol] 138 mmol/L Normal 133-145 [facility] Comment on above: Order Comment: Relea se to patient->Automatic 55722&Blood Performed By: #### M DIFF #### [address] [address] Complete Blood Counton 06-04 Differential Complete Manual Normal [facility] Comment on above: Order Comment: Relea se to patient->Automatic 59535&Blood Performed By: #### M DIFF #### [address] [address] Erythrocyte distribution width (RBC) [Ratio] 13.2 % Normal 0.0-14.4 [facility] Comment on above: Order Comment: Relea se to patient->Automatic 15519&Blood Performed By: #### M DIFF #### [address] [address] Hematocrit (Bld) [Volume fraction] 35.4 % Low 37.0-46.0 [facility] Comment on above: Order Comment: Relea se to patient->Automatic 67985&Blood Performed By: #### M DIFF #### [place] [address] Hemoglobin (Bld) [Mass/Vol] 12.1 g/dL Normal 12.0-15.0 [facility] Comment on above: Order Comment: Relea se to patient->Automatic 32568&Blood Performed By: #### M DIFF #### [place] [address] Immature granulocytes/100 WBC (Bld) 0.50 % Normal [facility] Comment on above: Order Comment: Relea se to patient->Automatic 72502&Blood Result Comment: Charity ture Granulocyte Percent includes promyelocytes, myelocytes, and metamyelocytes. IG% > 1.0 indicates a left shift is present. With automated differentials, bands are included in the neutrophil count and not in the Immature Granulocyte Percent. Performed By: #### M DIFF #### [place] [address] MCH (RBC) [Entitic mass] 27.1 pg Normal 25.0-35.0 [facility] Comment on above: Order Comment: Relea se to patient->Automatic 24412&Blood Performed By: #### M DIFF #### [place] [address] MCHC 34.2 % Normal 31.0-37.0 [facility] Comment on above: Order Comment: Relea se to patient->Automatic 98862&Blood Performed By: #### M DIFF #### [place] [address] MCV (RBC) [Entitic vol] 79.2 fL Normal 78.0-96.0 [facility] Comment on above: Order Comment: Relea se to patient->Automatic 95692&Blood Performed By: #### M DIFF #### [address] [address] Nucleated RBC/100 WBC (Bld) [Ratio] 0.0 % Normal -1.0-0.0 [facility] Comment on above: Order Comment: Relea se to patient->Automatic 46687&Blood Performed By: #### M DIFF #### [address] [address] Platelet mean volume (Bld) [Entitic vol] 9.6 fL Normal [facility] Comment on above: Order Comment: Relea se to patient->Automatic 10479&Blood Result Comment: MPV is platelet range and age dependent Performed By: #### M DIFF #### [address] [address] Platelets (Bld) [#/Vol] 179 10*3/uL Normal 150-450 [facility] Comment on above: Order Comment: Relea se to patient->Automatic 48682&Blood Performed By: #### M DIFF #### [address] [address] RBC 4.47 10E12/L Normal 4.10-4.80 [facility] Comment on above: Order Comment: Relea se to patient->Automatic 10050&Blood Performed By: #### M DIFF #### [address] [address] WBC (Bld) [#/Vol] 6.1 10*3/uL Normal 4.5-13.0 [facility] Comment on above: Order Comment: Relea se to patient->Automatic 31353&Blood Performed By: #### M DIFF #### [address] [place] [address] Complete Blood Count with Di fferentialon 06-05-2023 Differential Complete Manual [facility] Erythrocyte distribution width (RBC) [Ratio] 13.2 % 0.0 - 14.4 % [facility] Hematocrit (Bld) [Volume fraction] 35.4 % Low 37.0 - 46.0 % [facility] Hemoglobin (Bld) [Mass/Vol] 12.1 g/dL 12.0 - 15.0 g/dl [facility] Immature granulocytes/100 WBC (Bld) 0.50 % [facility] Comment on above: Immature Granulocyte Percent includes promyelocytes, myelocytes, and metamyelocytes. IG% > 1.0 indicates a left shift is present. With automated differentials, bands are included in the neutrophil count and not in the Immature Granulocyte Percent. MCH (RBC) [Entitic mass] 27.1 pg 25. 0 - 35.0 pg [facility] MCHC 34.2 % 31.0 - 37.0 % [facility] MCV (RBC) [Entitic vol] 79.2 fL 78.0 - 96.0 fl [facility] Nucleated RBC/100 WBC (Bld) [Ratio] 0.0 % -1.0 - 0.0 % [facility] Platelet mean volume (Bld) [Entitic vol] 9.6 fL [facility] Comment on above: MPV is platelet range and age dependent Platelets (Bld) [#/Vol] 179 10*3/uL [facility] RBC (Bld) [#/Vol] 4.47 10*6/uL [facility] WBC (Bld) [#/Vol] 6.1 10*3/uL [facility] Comprehensive metabolic pane l (Lab Collect)on 06-05-2023 Albumin [Mass/Vol] 3.9 g/dL 3.5 - 5.0 g/dL [facility] ALP [Catalytic activity/Vol] 201 U/L High 43 - 83 U/L [facility] ALT [Catalytic activity/Vol] 124 U/L High 0 - 34 U/L [facility] AST [Catalytic activity/Vol] 89 U/L High 0 - 31 U/L [facility] Bilirubin [Mass/Vol] 0.4 mg/dL 0.0 - 1 .0 mg/dL [facility] Calcium [Mass/Vol] 8.9 mg/dL 7.6 - 11. 0 mg/dL [facility] Chloride [Moles/Vol] 103 mmol/L 96 - 10 8 mmol/L [facility] CO2 [Moles/Vol] 25.3 mmol/L 22.0 - 29.0 mmol/L [facility] Creatinine [Mass/Vol] 0.38 mg/dL Low 0.50 - 1.00 mg/dL [facility] Glucose [Mass/Vol] 87 mg/dL 70 - 99 mg/dL [facility] Comment on above: Criteria for Diagnos is of Diabetes: Fasting Specimen (no caloric intake for at least 8 hours): <100 mg/dL Normal 100-125 mg/dL Increased risk for Diabetes >125 mg/dL Diagnostic for Diabetes Random Glucose (any time of day without regard to last meal): > or = 200 mg/dL plus Classic Symptoms of Diabetes Potassium [Moles/Vol] 3.7 mmol/L 3.3 - 5.1 mmol/L [facility] Protein [Mass/Vol] 6.9 g/dL 5.9 - 8.4 g/dL [facility] Sodium [Moles/Vol] 138 mmol/L 133 - 145 mmol/L [facility] Urea nitrogen [Mass/Vol] 9 mg/dL 4 - 19 mg/d L [facility] EBV capsid IgG Qn (S)on EBV VCA IGG, QUAL Positive Abnormal Negative [facility] Comment on above: Order Comment: Speci men Type: BLOOD SPECIMEN Ordering Facility: [facility] Address: [address], [place] [address] Result Comment: The result suggests recent or past EBV infection. The final interpretation should be done in the context of other EBV serology panel results. Performed By: #### 7 886-5, 7885-7 #### [facility] CLIA [id number] [address] [place] [id number] [place] EBV capsid IgM Qn (S)on EBV VCA IGM, QUAL Negative Normal Negative [facility] Comment on above: Order Comment: Speci men Type: BLOOD SPECIMEN Ordering Facility: [facility] Address: [address] [place] [address] Result Comment: No s erological evidence of recent EBV infection. Performed By: #### 7 886-5, 7885-7 #### [facility] CLIA [id number] [address] [place] [address] [place] Lactate Dehydrogenaseon LDH [Catalytic activity/Vol] 350 U/L High 120-234 [facility] Comment on above: Order Comment: Relea se to patient->Automatic 64982&Blood Performed By: #### M DIFF #### [place] [address] Lactate dehydrogenaseon Interpretation and review of laboratory results Abnormal [facility] LD 350 U/L High 120 - 234 U/L [facility] Manual Differentialon 2023 % Eosinophils 1 % 0 - 3 % [facility] % Metamyelocytes 0 % 0 - 0 % [facility] % Monocytes 11 % High 3 - 6 % [facility] % Myelocytes 0 % 0 - 0 % [facility] % Promyelocytes 0 % 0 - 0 % [facility] Absolute Neutrophil No. 3.1 [facility] Band Neutrophil 11 % 5 - 11 % [facility] Cell Morphology Normal [facility] Lymphocytes 38 % 25 - 45 % [facility] Segmented Neutrophils 39 % 34 - 64 % [facility] Absolute Neutrophil No. 3.1 10E3/uL Normal 2.0-7.2 [facility] Comment on above: Order Comment: Relea se to patient->Automatic 73447&Blood Performed By: #### M DIFF #### [place] [address] Band Neutrophils 11 % Normal 5-11 [facility] Comment on above: Order Comment: Relea se to patient->Automatic 75959&Blood Performed By: #### M DIFF #### [address] [address] Cell Morphology Normal Normal [facility] Comment on above: Order Comment: Relea se to patient->Automatic 38836&Blood Performed By: #### M DIFF #### [address] [address] Eosinophils 1 % Normal 0-3 [facility] Comment on above: Order Comment: Relea se to patient->Automatic 06788&Blood Performed By: #### M DIFF #### [address] [address] Lymphocytes 38 % Normal 25-45 [facility] Comment on above: Order Comment: Relea se to patient->Automatic 90462&Blood Performed By: #### M DIFF #### [address] [address] Metamyelocytes 0 % Normal 0-0 [facility] Comment on above: Order Comment: Relea se to patient->Automatic 62657&Blood Performed By: #### M DIFF #### [address] [address] Monocytes 11 % High 3-6 [facility] Comment on above: Order Comment: Relea se to patient->Automatic 32290&Blood Performed By: #### M DIFF #### [address] [address] Myelocytes 0 % Normal 0-0 [facility] Comment on above: Order Comment: Relea se to patient->Automatic 37086&Blood Performed By: #### M DIFF #### [address] [address] Promyelocytes 0 % Normal 0-0 [facility] Comment on above: Order Comment: Relea se to patient->Automatic 20072&Blood Performed By: #### M DIFF #### [facility] [address] [place] [address] Segmented Neutrophils 39 % Normal 34-64 [facility] Comment on above: Order Comment: Relea se to patient->Automatic 12661&Blood Performed By: #### M DIFF #### [facility] [address] [place] [address] No Panel Informationon 06-04 Release to patient->Automatic [facility] Interpretation and review of laboratory results Abnormal [facility] Release to patient->Automatic [facility] Interpretation and review of laboratory results Abnormal [facility] Release to patient->Automatic [facility] Progress Noteon 06-05-2023 [employer] Authentication Interface Message Text Patient ID: Neymar Gross is a 18 y.o. female. Her chief complaint(s) include: Fever (101), Pharyngitis (Hurts while eating and drinking, started Thursday, muscle aches,), Other (Pain in eyes, both eyes, eye lid pain), and Cough (Dry cough ) Assessment 1. Viral pharyngitis 2. Sore throat 3. Splenomegaly Plan Neymar was seen today for fever, pharyngitis, other [...] Background *Present Within Expiration *Yes LOT # [id number] Rapid Strep A POCT NAAT Collection Time: 06/05/23 8:16 AM Result Value Ref Range Rapid Strep A POC Result Negative Negative NA Normal [facility] Rapid Strep A POCT NAATon S. pyogenes Ag IA Ql (Unsp spec) Negative Normal Negative [facility] Comment on above: Performed By: #### M DIFF #### [address] [address] Uric Acidon 06-05-2023 Urate [Mass/Vol] 3.2 mg/dL Normal 2.6-8.0 [facility] Comment on above: Order Comment: Relea se to patient->Automatic 76109&Blood Performed By: #### Skylar DUNLAP #### [facility] [address] [place] [address] .Auto Diffon 03-20-2023 Basophil, Absolute 0.0 10 3/mcL Normal 0.0-0.2 [facility] ([place]) Comment on above: Performed By: #### V IDH, TSH, LIPID, ADIFF, CMP, ANEU, FT4, CBC #### [address] [address] Basophils/100 WBC (Bld) 0.7 % Normal 0.0-2.5 A [facility] ([place]) Comment on above: Performed By: #### V IDH, TSH, LIPID, ADIFF, CMP, ANEU, FT4, CBC #### [address] [address] Eosinophil, Absolute 0.1 10 3/mcL Normal 0.0-0.4 [facility] ([place]) Comment on above: Performed By: #### V IDH, TSH, LIPID, ADIFF, CMP, ANEU, FT4, CBC #### [address] [address] Eosinophils/100 WBC (Bld) 1.8 % Normal 0.0-7.0 [facility] ([place]) Comment on above: Performed By: #### V IDH, TSH, LIPID, ADIFF, CMP, ANEU, FT4, CBC #### [address] [address] Lymphocyte, Absolute 2.4 10 3/mcL Normal 0.8-3.9 [facility] ([place]) Comment on above: Performed By: #### V IDH, TSH, LIPID, ADIFF, CMP, ANEU, FT4, CBC #### [address] [address] Lymphocytes/100 WBC (Bld) 36.2 % Normal 10.0-50.0 [facility] ([place]) Comment on above: Performed By: #### V IDH, TSH, LIPID, ADIFF, CMP, ANEU, FT4, CBC #### [address] [address] Monocyte, Absolute 0.5 10 3/mcL Normal 0.2-1.0 [facility] ([place]) Comment on above: Performed By: #### V IDH, TSH, LIPID, ADIFF, CMP, ANEU, FT4, CBC #### [address] [address] Monocytes/100 WBC (Bld) 7.7 % Normal 1.7-13.0 [facility] ([place]) Comment on above: Performed By: #### V IDH, TSH, LIPID, ADIFF, CMP, ANEU, FT4, CBC #### [address] [address] Neutrophils/100 WBC (Bld) 53.6 % Normal 37.0-80.0 [facility] ([place]) Comment on above: Performed By: #### V IDH, TSH, LIPID, ADIFF, CMP, ANEU, FT4, CBC #### [address] [address] .NEUABSon 03-20-2023 Neutrophil, Absolute 3.5 10 3/mcL Normal 2.9-6.2 [facility] ([place]) Comment on above: Performed By: #### V IDH, TSH, LIPID, ADIFF, CMP, ANEU, FT4, CBC #### [address] [address] CBCon 03-20-2023 Erythrocyte distribution width (RBC) [Ratio] 13.9 % Normal 11.5-14.5 [facility] ([place] Comment on above: Performed By: #### V IDH, TSH, LIPID, ADIFF, CMP, ANEU, FT4, CBC #### [address] [address] Hematocrit (Bld) [Volume fraction] 38.0 % Normal 37.0-47.0 [facility] ([place] Comment on above: Performed By: #### V IDH, TSH, LIPID, ADIFF, CMP, ANEU, FT4, CBC #### [address] [address] Hgb 13.0 G/dL Normal 12.0-16.0 [facility] ([place] Comment on above: Performed By: #### V IDH, TSH, LIPID, ADIFF, CMP, ANEU, FT4, CBC #### [place] [id number] MCH (RBC) [Entitic mass] 27.3 pg Normal 27.0-31.2 [facility] ([place] Comment on above: Performed By: #### V IDH, TSH, LIPID, ADIFF, CMP, ANEU, FT4, CBC #### [place] [address] MCHC 34.1 G/dL Normal 33.0-37.0 [facility] ([place] Comment on above: Performed By: #### V IDH, TSH, LIPID, ADIFF, CMP, ANEU, FT4, CBC #### [address] [address] MCV (RBC) [Entitic vol] 79.9 fL Low 80.0-94.0 A [facility] ([place] Comment on above: Performed By: #### V IDH, TSH, LIPID, ADIFF, CMP, ANEU, FT4, CBC #### [address] [address] Platelet 347 10 3/mcL Normal 130-400 [facility] ([place] Comment on above: Performed By: #### V IDH, TSH, LIPID, ADIFF, CMP, ANEU, FT4, CBC #### [address] [address] Platelet mean volume (Bld) [Entitic vol] 7.2 fL Low 7.4-10.4 [facility] ([place] Comment on above: Performed By: #### V IDH, TSH, LIPID, ADIFF, CMP, ANEU, FT4, CBC #### [place] [id number] RBC 4.76 10 6/mcL Normal 4.20-5.40 [facility] ([place] Comment on above: Performed By: #### V IDH, TSH, LIPID, ADIFF, CMP, ANEU, FT4, CBC #### [address] [address] WBC 6.5 10 3/mcL Normal 4.6-10.8 [facility] ([place] Comment on above: Performed By: #### V IDH, TSH, LIPID, ADIFF, CMP, ANEU, FT4, CBC #### [address] [address] CMPon 03-20-2023 Albumin Level 4.0 G/dL Normal 3.5-5.0 [facility] ([place] Comment on above: Performed By: #### V IDH, TSH, LIPID, ADIFF, CMP, ANEU, FT4, CBC #### [address] [address] Albumin/Globulin [Mass ratio] 1.1 {ratio} Normal 1.1-2.5 [facility] ([place] Comment on above: Performed By: #### V IDH, TSH, LIPID, ADIFF, CMP, ANEU, FT4, CBC #### [address] [address] ALP [Catalytic activity/Vol] 63 U/L Low 135-450 [facility] ([place] Comment on above: Performed By: #### V IDH, TSH, LIPID, ADIFF, CMP, ANEU, FT4, CBC #### [address] [address] ALT [Catalytic activity/Vol] 18 U/L Normal 14-59 [facility] ([place] Comment on above: Performed By: #### V IDH, TSH, LIPID, ADIFF, CMP, ANEU, FT4, CBC #### [address] [address] AST [Catalytic activity/Vol] 16 U/L Normal 10-40 [facility] ([place] Comment on above: Performed By: #### V IDH, TSH, LIPID, ADIFF, CMP, ANEU, FT4, CBC #### [address] [address] Bili Total 0.4 mg/dL Normal 0.2-1.0 [facility] ([place] Comment on above: Result Comment: Use of this assay is not recommended for patients undergoing treatment with eltrombopag due to the potential for falsely elevated results. Performed By: #### V IDH, TSH, LIPID, ADIFF, CMP, ANEU, FT4, CBC #### [place] [address] BUN/Creatinine Ratio 23 ratio Normal 7-27 [facility] ([place]) Comment on above: Performed By: #### V IDH, TSH, LIPID, ADIFF, CMP, ANEU, FT4, CBC #### [place] [address] Calcium [Mass/Vol] 9.2 mg/dL Normal 8.4-10.2 [facility] ([place]) Comment on above: Performed By: #### V IDH, TSH, LIPID, ADIFF, CMP, ANEU, FT4, CBC #### [address] [address] Chloride [Moles/Vol] 105 mmol/L Normal 98-107 [facility] ([place] Comment on above: Performed By: #### V IDH, TSH, LIPID, ADIFF, CMP, ANEU, FT4, CBC #### [address] [address] CO2 [Moles/Vol] 27 mmol/L Normal 22-29 [facility] ([place] Comment on above: Performed By: #### V IDH, TSH, LIPID, ADIFF, CMP, ANEU, FT4, CBC #### [place] [address] Creatinine [Mass/Vol] 0.44 mg/dL Low 0.55-1.02 [facility] [place] Comment on above: Performed By: #### V IDH, TSH, LIPID, ADIFF, CMP, ANEU, FT4, CBC #### [place] [id number] Electrolyte Balance 11.0 mEq/L Normal 4.0-15.0 [facility] ([place]) Comment on above: Performed By: #### V IDH, TSH, LIPID, ADIFF, CMP, ANEU, FT4, CBC #### [address] [address] Globulin 3.8 G/dL Normal [facility] ([place]) Comment on above: Performed By: #### V IDH, TSH, LIPID, ADIFF, CMP, ANEU, FT4, CBC #### [address] [address] Glucose [Mass/Vol] 87 mg/dL Normal 70-105 [facility] ([place] Comment on above: Performed By: #### V IDH, TSH, LIPID, ADIFF, CMP, ANEU, FT4, CBC #### [address] [address] Potassium [Moles/Vol] 4.1 mmol/L Normal 3.5-5.1 [facility] [place] Comment on above: Performed By: #### V IDH, TSH, LIPID, ADIFF, CMP, ANEU, FT4, CBC #### [address] [address] Sodium [Moles/Vol] 143 mmol/L Normal 136-145 [facility] ([place] Comment on above: Performed By: #### V IDH, TSH, LIPID, ADIFF, CMP, ANEU, FT4, CBC #### [address] [address] Total Protein 7.8 G/dL Normal 6.4-8.2 [facility] ([place] Comment on above: Performed By: #### V IDH, TSH, LIPID, ADIFF, CMP, ANEU, FT4, CBC #### [address] [address] Urea nitrogen [Mass/Vol] 10 mg/dL Normal 7-18 [facility] ([place] Comment on above: Performed By: #### V IDH, TSH, LIPID, ADIFF, CMP, ANEU, FT4, CBC #### [place] [address] [place], [place] [address] FT4on 03-20-2023 Free T4 [Mass/Vol] 1.04 ng/dL Normal 0.76-1.46 [facility] ([place] Comment on above: Performed By: #### V IDH, TSH, LIPID, ADIFF, CMP, ANEU, FT4, CBC #### [place] [address] [place], [place] [address] LABORATORYOrdered By: SYSTEM SYSTEM on 03-20-2023 25-hydroxyvitamin [...] MCH (RBC) [Entitic mass] 27.3 pg Normal 27. 0 - 31.2 pg AO Workflow SS MCHC [...] [Mass/Vol] 10 mg/dL Normal 7 - 18 mg/d L AO ADM SS Urea nitrogen/Creatinine [Mass ratio] 23 ratio Normal 7 - 27 ratio AO ADM SS WBC (Bld) [#/Vol] 6.5 103/mcL Normal 4.6 - 10.8 10^3/mcL AO Workflow SS LABORATORYOrdered By: Cassie Hernandez on 03-20-2023 Cholesterol [Mass/Vol] 149 mg/dL Normal 0 - 200 mg/dL AO ADM SS Comment on above: Interpretive Data: C holesterol Reference Interval: Less than 200 Desirable 200-239 Borderline high risk 240 and above High risk Cholesterol in HDL [Mass/Vol] 50 mg/dL Normal 40 - 60 mg/dL AO ADM SS Cholesterol in LDL [Mass/Vol] 87 mg/dL Normal 0 - 130 mg/dL AO ADM SS Triglyceride [Mass/Vol] 61 mg/dL Normal 0 - 150 mg/d L AO ADM SS Comment on above: Interpretive Data: T riglyceride Reference Interval: Less than 150 Normal 150-199 Borderline high risk 200-499 High risk 500 or higher Very high risk LIPIDon 03-20-2023 Cholesterol [Mass/Vol] 149 mg/dL Normal 0-200 [facility] ([place]) Comment on above: Result Comment: Chol esterol Reference Interval: Less than 200 Desirable 200-239 Borderline high risk 240 and above High risk Performed By: #### V IDH, TSH, LIPID, ADIFF, CMP, ANEU, FT4, CBC #### [address] [address] Cholesterol in HDL [Mass/Vol] 50 mg/dL Normal 40-60 [facility] ([place] Comment on above: Performed By: #### V IDH, TSH, LIPID, ADIFF, CMP, ANEU, FT4, CBC #### [address] [address] Cholesterol in LDL [Mass/Vol] 87 mg/dL Normal 0-130 [facility] ([place] Comment on above: Performed By: #### V IDH, TSH, LIPID, ADIFF, CMP, ANEU, FT4, CBC #### [address] [address] Triglyceride [Mass/Vol] 61 mg/dL Normal 0-150 [facility] ([place] Comment on above: Result Comment: Trig lyceride Reference Interval: Less than 150 Normal 150-199 Borderline high risk 200-499 High risk 500 or higher Very high risk Performed By: #### V IDH, TSH, LIPID, ADIFF, CMP, ANEU, FT4, CBC #### [address] [address] TSHon 03-20-2023 TSH Qn 1.89 m[IU]/L Normal 0.36-3.74 [facility] ([place] Comment on above: Performed By: #### V IDH, TSH, LIPID, ADIFF, CMP, ANEU, FT4, CBC #### [address] [address] VIDHon 03-20-2023 Vit. D 25-Hydroxy 8.1 ng/mL Normal [facility] ([place]) Comment on above: Result Comment: Inte rpretive Values Based on Total 25(OH) Vitamin D: Deficient <20 ng/mL Insufficient 20 - <30 ng/mL Sufficient 30-100 ng/mL Performed By: #### V IDH, TSH, LIPID, ADIFF, CMP, ANEU, FT4, CBC #### [address] [address] Vital Signs Date Time Vital Sign Value Performing Clinician Yamilka amin 10-14-2024 14:13-0400 Body height 149.[address] Amanda Hernandez MD Work Phone: [facility] 10-14-2024 14:13-0400 Body mass index (BMI) [Percentile] Per age and sex 34.9 % Dr. Amanda Hernandez MD Work Phone: [phone] [place] [address] 10-14-2024 14:13-0400 Body mass index (BMI) [Ratio] 20.5 kg/m2 Dr. Amanda Hernandez MD Work Phone: [phone] [place] [address] 10-14-2024 14:13-0400 Body weight 45.[address] Amanda Hernandez MD Work Phone: [phone] [address] 10-14-2024 14:13-0400 Diastolic blood pressure 73 mm[Hg] Dr. Amanda Hernandez MD Work Phone: [phone] [address] 10-14-2024 14:13-0400 Systolic blood pressure 117 mm[Hg] Dr. Amanda Hernandez MD Work Phone: [phone] [address] 04-17-2023 15:52-0500 Body height 149.[address] Amanda Hernandez Work Phone: [phone] [place] [address] 04-17-2023 15:49-0500 Body mass index (BMI) [Percentile] Per age and sex 32.5 % Dr. Amanda Hernandez Work Phone: [phone] [address] 04-17-2023 15:49-0500 Body mass index (BMI) [Ratio] 20 kg/m2 Dr. Amanda Hernandez Work Phone: [phone] [place] [address] 04-17-2023 15:49-0500 Body weight 45.[address] Amanda Hernandez Work Phone: [phone] [address] 04-17-2023 15:49-0500 Diastolic blood pressure 71 mm[Hg] Dr. Amanda Hernandez Work Phone: [phone] [address] 04-17-2023 15:49-0500 Systolic blood pressure 109 mm[Hg] Dr. Amanda Hernandez Work Phone: [phone] [place] [address] Encounters Encounter Date Encounter Type Care Provider Facility Start: 01-09-2025 [facility] Facility :[facility] Start: 10-14-2024 End: 10-14-[address] Nivia Anderson MD -[facility] Work Phone: Start: 10-14-2024 End: 10-14-[address] Amanda Hernandez MD Work Phone: -[facility] Start: 10-13-2024 End: 10-13-[address] Amanda Hernandez MD Work Phone: -[facility] Start: 10-13-2024 End: 10-13-[address] Casandra Turner MD -[facility] Work Phone: Start: 10-13-2024 End: 10-13-2024 ambulatory BIMAL MAST Facility:[facility] Start: 09-20-2024 End: 09-20-2024 ambulatory VERONICA VACCARELLI PA-C Facility:[facility] Start: 09-20-2024 End: 09-20-[address] CASANDRA TURNER MD [facility] Start: 09-16-2024 End: 09-16-2024 ambulatory VERONICA VACCARELLI PA-C Facility:[facility] Start: 09-16-2024 End: 09-16-2024 Patient encounter procedure JOSE EDUARDO TAMMY [facility] Start: 09-14-2024 End: 09-14-[address] Amanda Hernandez MD Work Phone: -[facility] Start: 09-14-2024 End: 09-14-[address] Casandra Turner MD -[facility] Work Phone: Start: 09-14-2024 End: 09-14-2024 ambulatory Amanda Hernandez Facility:[facility] Start: 08-24-2024 End: 08-24-[address] Amanda Hernandez MD Work Phone: -[facility] [place] Start: 08-24-2024 End: 08-24-[address] Casandra Turner MD -[facility] Work Phone: Start: 08-24-2024 End: 08-24-2024 ambulatory Amanda [place] Facility:[facility] Start: 07-19-2024 End: 07-19-2024 ambulatory VERONICA VACCARELLI PA-C Facility:[facility] Start: 07-19-2024 End: 07-19-2024 Patient encounter procedure BIMAL MAST [employer] [facility] Start: 06-15-2024 End: 06-15-2024 ambulatory BIMAL MAST [employer] Facility:[facility] Start: 06-06-2024 End: 06-06-2024 ambulatory JULIET MCKAYTES [employer] Facility:A Start: 03-14-2024 End: 03-14-2024 ambulatory VERONICA VACCARELLI PA-C Facility:[facility] Start: 01-07-2024 End: 01-07-2024 ambulatory BIMAL MAST [employer] Facility:[facility] Start: 01-07-2024 End: 01-07-2024 Patient encounter procedure BIMAL MAST [employer] [facility] Start: 09-19-2023 End: 09-19-2023 ambulatory ALEYDA JOHNSTON [employer] Facility:[facility] Start: 09-19-2023 End: 09-19-2023 Patient encounter procedure ALEYDA JOHNSTON [employer] [facility] Start: 08-13-2023 End: 08-13-2023 Subsequent hospital visit by physician Desmond Cristina MD Work Phone: [facility] Comment on above: Elevated LDH; Elevated levels of transaminase & lactic acid dehydrogenase Start: 08-13-2023 End: 08-13-2023 ambulatory DESMOND CRISTINA [facility] Start: 07-06-2023 End: 07-06-2023 ambulatory AMANDA A [facility] Start: 06-12-2023 End: 06-12-[address] Amanda Hernandez Work Phone: [facility] Work Phone: Start: 06-12-2023 End: 06-12-[address] Amanda Hernandez Work Phone: [facility] Work Phone: Start: 06-11-2023 End: 06-11-2023 Subsequent hospital visit by physician Amanda Hernandez MD Work Phone: [facility] Comment on above: Elevated liver enzym es; Splenomegaly; Elevated C-reactive protein (CRP); Elevated LDH Start: 06-11-2023 End: 06-11-2023 ambulatory [facility] Start: 06-05-2023 End: 06-05-2023 Subsequent hospital visit by physician Desmond Cristina MD Work Phone: [facility] Comment on above: Viral pharyngitis; Splenomegaly Start: 06-05-2023 End: 06-05-2023 ambulatory DESMOND CRISTINA [facility] Start: 06-05-2023 End: 06-05-2023 ambulatory [place] [facility] Start: 05-01-2023 End: 05-01-[address] Amanda Hernandez Work Phone: [facility] Work Phone: Start: 05-01-2023 End: 05-01-[address] Amanda Hernandez Work Phone: [facility] Work Phone: Start: 04-17-2023 End: 04-17-[address] Amanda Hernandez Work Phone: [facility] Work Phone: Start: 03-20-2023 End: 03-20-2023 ambulatory VERONICA DIANA PA-C Facility:[facility] Start: 03-20-2023 End: 03-20-2023 Patient encounter procedure VERONICA DIANA [facility] Start: 10-10-2022 End: 10-10-2022 ambulatory [facility] Start: 10-08-2022 End: 10-08-2022 ambulatory [facility] Start: 10-01-2022 End: 10-01-2022 ambulatory [facility] Start: 09-29-2022 End: 09-29-2022 ambulatory SELF REFERRED [facility] Procedures Date Procedure Procedure Detail Performing Clinician Start: 09-14-2024 Urnls dip stick/tabl et reagent auto microscopy Dr. Amanda Hernandez MD Work Phone: Start: 08-24-[address] Amanda Hernandez MD Work Phone: Start: 08-24-2024 Hepatitis C antibody measurement Dr. Amanda Hernadnez MD Work Phone: Comment on above: Reactive: Presumptiv e evidence of antibodies to HCV. Follow CDC recommendations for supplemental testing.Non-Reactive: Antibodies to HCV were not detected; does not exclude the possibility of exposure to HCVReactive Results are presumptive evidence of antibodies to HCV. Follow CDC recommendations for supplemental testing.Order confirmation testing: HCV Quant by PCR testing - HCVPCR #[id number] Non Reactive: < 0.8 Equivocal: >/= 0.8 to < 1.0 Reactive: >/= 1.0The CDC requires that a reactive/equivocal HCV antibody result be sent out for confirmation. HCV Quant by PCR testing. Start: 08-24-[address] Amanda Hernandez MD Work Phone: Comment on above: No lupus anticoagula nt was detected.Performed at: [address] [id number] Director: Clement Adorno MD, Phone: [phone] Start: 08-24-2024 Lupus anticoagulant assay, platelet neutralization method Dr. Amanda Hernandez MD Work Phone: Start: 08-24-2024 [address]upus antico[address] screening test Dr. Amanda Hernandez MD Work Phone: Start: 08-24-[address] Lona Hernandez MD Work Phone: Start: 08-24-2024 Urnls dip stick/tabl et reagent auto microscopy Dr. Amanda Hernandez MD Work Phone: Start: 08-13-2023 Hepatic function panel Desmond Cristina MD Work Phone: Start: 08-13-2023 Lactate dehydrogenase ldh Desmond Cristina MD Work Phone: Start: 06-12-[address] Abdiel Hernandez Work Phone: Start: 06-11-2023 C-reactive protein David Hernandez MD Work Phone: Start: 06-11-2023 Hepatic function 200 0 panel - Serum or Plasma Amanda Hernandez MD Work Phone: Start: 06-11-2023 Lactate dehydrogenas e [Enzymatic activity/volume] in Serum or Plasma Amanda Hernandez MD Work Phone: Start: 06-05-2023 C-reactive protein Desmond Cristina MD Work Phone: Start: 06-05-2023 COMPLETE BLOOD COUNT WITH DIFFERENTIAL Desmond Cristina MD Work Phone: Start: 06-05-2023 Comprehensive metabo lic panel Desmond Cristina MD Work Phone: Start: 06-05-2023 Manual Differential panel - Blood Desmond Cristina MD Work Phone: Start: 05-01-[address] Junaid Hernandez Work Phone: Start: 03-02-2020 Torsion of ovary (disorder) VERONICA DIANA PA-C Plan of Treatment Date Care Activity Detail Author Start: 10-03-2027 Tetanus Diphtheria a nd Pertussis Vaccines (7 - Td or Tdap) Tetanus Diphtheria and Pertussis Vaccines (7 - Td or Tdap) [facility] Start: 07-05-2024 Well Visit Well Visit [facility] Start: 11-01-2023 FLU (Season Ended) FLU (Season Ended ) [facility] Start: 07-06-2023 End: 07-06-2023 Patient encounter procedure 07/06/2023 3:30 PM [place] [address] Amanda Hernandez MD [address] [place] [address] [phone] [facility] Start: 07-04-2023 Well Visit Well Visit [facility] Start: 06-11-2023 End: 06-11-2023 Patient encounter procedure 06/11/2023 2:45 PM EDT [place] [address] Amanda Hernandez MD [address] [place] [address] [phone] [facility] Start: 2023 Hearing Screening Hearing Screening [facility] Start: 10-31-2022 COVID-19 (2022-04 4 season) COVID-19 ( season) [facility] Start: 10-31-2022 FLU (#1) FLU (#1) [facility] End: 06-05-2023 Timothy-Luther virus VCA, IgG (Lab Collect) [facility] Work Phone: Comment on above: 1 Occurrences starti ng 06/05/2023 until 06/05/2023 End: 06-05-2023 Timothy-Luther virus VCA, IgM (Lab Collect) [facility] Comment on above: 1 Occurrences starti ng 06/05/2023 until 06/05/2023 Immunizations Immunization Date Immunization Notes Care Provider Ryley rodas 09-13-2024 measles, mumps and rubella virus vaccine; Translations: [M-M-R II] JOSE EDUARDO MUNOZ DO [facility] [place] 08-12-2024 measles, mumps and rubella virus vaccine; Translations: [M-M-R II] JOSE EDUARDO TAMMY DO [facility] 02-26-2022 influenza virus vaccine, unspecified formulation VERONICA VACCARELLI PA-C [facility] 02-26-2022 influenza, injectabl e, quadrivalent, preservative free Desmond Cristina MD Work Phone: [facility] 02-26-2022 meningococcal B vaccine, recombinant, OMV, adjuvanted VERONICA VACCARELLI PA-C [facility] 05-16-2021 meningococcal B vaccine, recombinant, OMV, adjuvanted VERONICA VACCARELLI PA-C [facility] 05-16-2021 meningococcal polysaccharide (groups A, C, Y and W-135) diphtheria toxoid conjugate vaccine (MCV4P) VERONICA VACCARELLI PA-C [facility] 05-16-2021 SARS-CoV-2 mRNA (tavxijesgim-ohip-agcew se) vaccine VERONICA VACCARELLI PA-C [facility] Comment on above: Result Comment: 2023: TPV ALL 12-29-2020 influenza virus vaccine, unspecified formulation VERONICA VACCARELLI PA-C [facility] 12-29-2020 influenza, injectabl e, quadrivalent, preservative free Desmond Cristina MD Work Phone: [facility] 10-11-2020 SARS-CoV-2 mRNA (tozinameran) vaccine VERONICA VACCARELLI PA-C [facility] 09-20-2020 SARS-CoV-2 mRNA (ammonromelian) vaccine VERONICA VACCARELLI PA-C [facility] 02-09-2020 influenza virus vaccine, unspecified formulation VERONICA VACCARELLI PA-C [facility] 02-09-2020 influenza, injectabl e, quadrivalent, preservative free Desmond Cristina MD Work Phone: [facility] 12-27-2018 influenza virus vaccine, unspecified formulation VERONICA VACCARELLI PA-C [facility] 12-27-2018 influenza, injectabl e, quadrivalent, preservative free Desmond Cristina MD Work Phone: [facility] 11-18-2018 Human Papillomavirus 9-valent vaccine Desmond Cristina MD Work Phone: [facility] 11-18-2018 Human Papillomavirus Quadval VERONICA VACCARELLI PA-C [facility] 12-24-2017 influenza virus vaccine, unspecified formulation VERONICA VACCARELLI PA-C [facility] 12-24-2017 influenza, injectabl e, quadrivalent, preservative free Desmond Cristina MD Work Phone: [facility] 10-02-2017 Human Papillomavirus 9-valent vaccine Desmond Cristina MD Work Phone: [facility] 10-02-2017 Human Papillomavirus Quadval VERONICA VACCARELLI PA-C [facility] 10-02-2017 meningococcal polysaccharide (groups A, C, Y and W-135) diphtheria toxoid conjugate vaccine (MCV4P) VERONICA VACCARELLI PA-C [facility] 10-02-2017 tetanus toxoid, redu gregoria diphtheria toxoid, and acellular pertussis vaccine, adsorbed VERONICA VACCARELLI PA-C [facility] 01-02-2017 influenza virus vaccine, unspecified formulation VERONICA VACCARELLI PA-C [facility] 01-02-2017 influenza, injectabl e, quadrivalent, preservative free Desmond Cristina MD Work Phone: [facility] 01-10-2016 influenza virus vaccine, unspecified formulation VERONICA VACCARELLI PA-C [facility] 01-10-2016 influenza, injectabl e, quadrivalent, preservative free Desmond Cristina MD Work Phone: [facility] 12-05-2014 influenza virus vaccine, unspecified formulation VERONICA VACCARELLI PA-C [facility] 12-05-2014 influenza, injectabl e, quadrivalent, preservative free Desmond Cristina MD Work Phone: [facility] 11-25-2013 influenza virus vaccine, unspecified formulation VERONICA VACCARELLI PA-C [facility] 11-25-2013 influenza, injectabl e, quadrivalent, preservative free Desmond Cristina MD Work Phone: [facility] 12-15-2012 influenza virus vaccine, unspecified formulation VERONICA VACCARELLI PA-C [facility] 12-15-2012 influenza, injectabl e, quadrivalent, preservative free Desmond Cristina MD Work Phone: [facility] 01-28-2012 influenza virus vaccine, split virus (incl. purified surface antigen) Desmond Cristina MD Work Phone: [facility] 01-28-2012 influenza virus vaccine, unspecified formulation VERONICA VACCARELLI PA-C [facility] 11-27-2010 influenza virus vaccine, split virus (incl. purified surface antigen) Desmond Cristina MD Work Phone: [facility] 11-27-2010 influenza virus vaccine, unspecified formulation VERONICA VACCARELLI PA-C [facility] 05-21-2010 diphtheria, tetanus toxoids and acellular pertussis vaccine Desmond Cristina MD Work Phone: [facility] 05-21-2010 diphtheria, tetanus toxoids and acellular pertussis vaccine, unspecified formulation VERONICA VACCARELLI PA-C [facility] 05-21-2010 measles, mumps, rubella, and varicella virus vaccine VERONICA VACCARELLI PA-C [facility] 05-21-2010 poliovirus vaccine, inactivated VERONICA VACCARELLI PA-C [facility] 01-03-2010 influenza virus vaccine, split virus (incl. purified surface antigen) Desmond Cristina MD Work Phone: [facility] 01-03-2010 influenza virus vaccine, unspecified formulation VERONICA VACCARELLI PA-C [facility] 04-06-2009 novel [id number], preservative-free, injectable Desmond Cristina MD Work Phone: [facility] 01-05-2009 influenza virus vaccine, split virus (incl. purified surface antigen) Desmond Cristina MD Work Phone: [facility] 01-05-2009 influenza virus vaccine, unspecified formulation VERONICA VACCMELI PA-C [facility] 01-05-2009 novel [id number], preservative-free, injectable Desmond Cristina MD Work Phone: [facility] 12-31-2007 influenza virus vaccine, whole virus Desmond Cristina MD Work Phone: [facility] 05-03-2007 hepatitis A vaccine, pediatric dosage, unspecified formulation VERONICA VACCMELI PA-C [facility] 05-03-2007 hepatitis A vaccine, pediatric/adolescent dosage, 2 dose schedule Desmond Cristina MD Work Phone: [facility] 05-03-2007 hepatitis A vaccine, unspecified formulation Desmond Cristina MD Work Phone: [facility] 09-28-2006 diphtheria, tetanus toxoids and pertussis vaccine Desmond Cristina MD Work Phone: [facility] 09-28-2006 haemophilus influenz ae type b vaccine, PRP-T conjugate VERONICA CARVER-C [facility] 05-02-2006 hepatitis A vaccine, pediatric dosage, unspecified formulation VERONICA VACCMELI PA-C [facility] 05-02-2006 hepatitis A vaccine, pediatric/adolescent dosage, 2 dose schedule Desmond Cristina MD Work Phone: [facility] 05-02-2006 hepatitis A vaccine, unspecified formulation Desmond Cristina MD Work Phone: [facility] 05-02-2006 measles, mumps and rubella virus vaccine Desmond Cristina MD Work Phone: [facility] 05-02-2006 measles/mumps/rubell a virus vaccine VERONICA VACCBENJI CARVER-C [facility] 05-02-2006 pneumococcal conjuga te vaccine, 7 valent Desmond Cristina MD Work Phone: [facility] 05-02-2006 varicella virus vaccine TERR I VACCARELLI PA-C [facility] 01-16-2006 influenza virus vaccine, unspecified formulation Desmond Cristina MD Work Phone: [facility] 2005 diphtheria, tetanus toxoids and pertussis vaccine Desmond Cristina MD Work Phone: [facility] 2005 DTaP-hepatitis B and poliovirus vaccine [facility] VACCARELLI PA-C [facility] 2005 haemophilus influenz ae type b vaccine, PRP-T conjugate VERONICA VACCARELLI PA-C [facility] 2005 hepatitis B vaccine, pediatric or pediatric/adolescent dosage Desmond Cristina MD Work Phone: [facility] 2005 pneumococcal conjuga te vaccine, 7 valent Desmond Cristina MD Work Phone: [facility] 2005 poliovirus vaccine, inactivated Desmond Cristina MD Work Phone: [facility] 2005 diphtheria, tetanus toxoids and pertussis vaccine Desmond Cristina MD Work Phone: [facility] 2005 DTaP-hepatitis B and poliovirus vaccine Desmond Cristina MD Work Phone: [facility] 2005 haemophilus influenz ae type b vaccine, PRP-T conjugate [facility] VACCARELLI PA-C [facility] 2005 hepatitis B pediatri c vaccine VERONICA VACCARELLI PA-C [facility] 2005 hepatitis B vaccine, pediatric or pediatric/adolescent dosage Desmond Cristina MD Work Phone: [facility] 2005 pneumococcal conjuga te vaccine, 7 valent Desmond Cristina MD Work Phone: [facility] 2005 poliovirus vaccine, inactivated VERONICA VACCARELLI PA-C [facility] 2005 diphtheria, tetanus toxoids and pertussis vaccine Desmodn Cristina MD Work Phone: [facility] 2005 DTaP-hepatitis B and poliovirus vaccine Desmond Cristina MD Work Phone: [facility] 2005 haemophilus influenz ae type b vaccine, PRP-T conjugate VERONICA VACCARELLI PA-C [facility] 2005 hepatitis B pediatri c vaccine VERONICA VACCARELLI PA-C [facility] 2005 hepatitis B vaccine, pediatric or pediatric/adolescent dosage Desmond Cristina MD Work Phone: [facility] 2005 pneumococcal conjuga te vaccine, 7 valent Desmond Cristina MD Work Phone: [facility] 2005 poliovirus vaccine, inactivated VERONICA VACCARELLI PA-C [facility] 2005 hepatitis B pediatri c vaccine VERONICA VACCARELLI PA-C [facility] 2005 hepatitis B vaccine, pediatric or pediatric/adolescent dosage Desmond Cristina MD Work Phone: [facility] Payers Date Payer Category Payer Self-pay [id number] 2024 Private Health Insurance [facility] [id number] 2024 Unknown [id number] 2023 Unknown [id number] 2005 Unknown [id number] [id number]. 479 2005 Unknown [id number] 2.16.840.1.068430.3.579.2. 479 2005 Unknown [id number] 2.16.840.1.500813.3.579.2. 479 2005 Unknown [id number] 2.16.840.1.715251.3.579.2. 479 2005 Unknown [id number] 2.16.840.1.697445.3.579.2. 479 2005 Unknown [id number] 2.16.840.1.189252.3.579.2. 479 2005 Unknown [id number] 2.16.840.1.230383.3.579.2. 627 2005 Unknown [id number] 2.16.840.1.982929.3.579.2. 627 2005 Unknown [id number] 2.16.840.1.440823.3.579.2. 627 2005 Unknown [id number] 2.16.840.1.499365.3.579.2. 627 2005 Unknown [id number] 2.16.840.1.604791.3.579.2. 627 2005 Unknown [id number] 2.16.840.1.069261.3.579.2. 627 2005 Unknown [id number] 2.16.840.1.876261.3.579.2. 627 2005 Unknown [id number] 2.16.840.1.966851.3.579.2. 627 2005 Unknown [id number] 2.16.840.1.964460.3.579.2. 627 2002 Unknown [facility] [id number] 2002-Present [address] [place] [address] 1.2.840.175229.1.13.234.2. [id number] 1979 Unknown [id number] 2.16.840.1.782553.3.579.2. 479 1979 Unknown [id number] 2.16840.1.614466.3.579.2. 479 1979 Unknown [id number] 2.16840.1.781425.3.579.2. 479 1979 Unknown [id number] 2.16.840.1.782546.3.579.2. 479 Unknown [id number] Unknown [id number] 2.16.840.1.698960.3.579.2. 462 Unknown [id number] 2.16840.1.415130.3.579.2. 462 Unknown [id number] 2.16840.1.875376.3.579.2. 462 Unknown [id number] 2.16840.1.907409.3.579.2. 462 Unknown [id number] 2.16840.1.944097.3.579.2. 462 Social History Date Type Detail Facility Start: 03-16-2023 End: 10-14-2024 Tobacco smoking status Never smoked tobacco (finding) [facility] Start: 2005 Sex Assigned At Female A [facility] Start: 04-17-2023 End: 04-17-2023 Tobacco smoking status NHIS Unknown if ever smoked [facility] Start: 12-06-2021 Tobacco use and exposure Smoke less tobacco non-user [facility] Start: 06-05-2023 End: 07-06-2023 Alcoholic beverage intake Not Asked [facility] Start: 06-05-2023 End: 07-06-2023 History of Social function [facility] Start: 06-05-2023 End: 07-06-2023 Tobacco use panel [facility] Adolescent depressio n screening assessment 0 [facility] Start: 2005 Sex assigned at Not on file A [facility] Sexual Orientation [facility] [place] Sex Female (finding) Melo Keily [facility] Clinical Notes 07-19-2024 to 10-14-2024 Note Date & Type Note Facility 10-14-2024 Evaluation note Diagnosis Onset Date Resolution Dysmenorrhea in adolescent acute October 14 2:10pm [facility] Work Phone: 1(260) 253-522707-22-2025 Note* Exam Date Time Procedure Performing Provider Status 09/20/24 8:19 AM US Abdomen Complete CHRIS JACOME DO ; Auth (Verified) [id number] ORIGINAL EXAMINATION: COMPLETE ABDOMINAL ULTRASOUND 09/20/2024 8:23 am TECHNIQUE: This report is based on interpretation of permanently recorded ultrasound images. COMPARISON: None. HISTORY: ORDERING SYSTEM PROVIDED HISTORY: Reason for Exam: ELEVATED LIVER ENZYMES FINDINGS: LIVER: The liver demonstrates normal echogenicity without evidence of intrahepatic biliary ductal dilatation. No focal lesion is seen. The main portal vein demonstrates antegrade flow. BILIARY SYSTEM: Gallbladder is unremarkable without evidence of pericholecystic fluid, wall thickening or stones. Negative sonographic Majano's sign. Common bile duct is within normal limits measuring 3.7 mm. KIDNEYS: The kidneys are unremarkable in appearance without evidence of hydronephrosis. The right kidney measures 10 x 5.4 x 3.8 cm. The left kidney measures 10.4 x 4.5 x 4.3 cm. PANCREAS: Visualized portions of the pancreas are unremarkable. SPLEEN: The spleen is unremarkable in appearance. Spleen is within normal limits in size. Suboptimal evaluation of the IVC and aorta. The visualized portions are unremarkable. OTHER: No evidence of ascites. IMPRESSION: Unremarkable abdominal ultrasound. I have personally reviewed the images of this examination and agree with the resident's findings and interpretation. Interpreted by: Chris Jacome DO Preliminary Report By: Jose A Storey Electronically signed By Chris Jacome DO Dictated Date: 09/20/2024 9:18:21 AM Prelim Date: 09/20/2024 9:30:58 AM Sign Date: 09/20/2024 9:30:58 AM Ordering Provider: CASANDRA TURNER [facility]05-20-2025 Evaluation + Plan note Diagnostic Tests Pending * ZAYNAB by IFA Screen 07/19/24 * Rheumatoid Factor 07/19/24 [facility] Evaluation + Plan note No data available for this section [facility] Evaluation + Plan note Future Appointments Appointment Date:09/23/2023 08:30:00 AM Scheduled Provider:BIMAL SOLORIO Location:[facility] Appointment Type:PC OV [facility] Evaluation + Plan note Future Appointments Appointment Date:09/20/2024 08:00:00 AM Scheduled Provider: Location:[facility] Appointment Type:US Liver Doppler Diagnostic Tests Pending * QFT-TB Plus (Client Incubated) 09/16/24 Future Scheduled Tests Radiology* US Abdomen/Abd Doppler 09/20/24 [facility] Evaluation note* Diagnosis Onset Date Resolution Status Dysmenorrhea in adolescent a [facility] Work Phone: Evaluation note* Diagnosis Viral pharyngitis Acute pharyngitis Splenomegaly documented in this encounter [facility] note* Diagnosis Elevated liver enzymes Nonspecific elevation of levels of transaminase or lactic acid dehydrogenase (LDH) Splenomegaly Elevated C-reactive protein (CRP) Elevated LDH Nonspecific elevation of levels of transaminase or lactic acid dehydrogenase (LDH) documented in this encounter [facility] note* Diagnosis Elevated LDH Nonspecific elevation of levels of transaminase or lactic acid dehydrogenase (LDH) Elevated levels of transaminase & lactic acid dehydrogenase Nonspecific elevation of levels of transaminase or lactic acid dehydrogenase (LDH) [facility] information [facility] Work Phone: Evaluation note* Diagnosis Onset Date Resolution Status Admit Date Dysmenorrhea in adolescent acute October 14, 2024 2:10pm [facility] Work Phone: Hospital Discharge instructions No data available for this section [facility] Progress note No data available for this section [facility] Reason for referral (narrative)No reason for referral [facility]: Chief Complaint and Reason for Visit Chief Complaint discuss options, cur rent treatment not working Dysmenorrhea, unspecified Reason for Visit Dysmenorrhea in adol escent Chief Complaint discuss options, cur rent treatment not working Dysmenorrhea, unspecified Splenomegaly, not elsewhere classified Reason for Visit Dysmenorrhea in adol escent Chief Complaint Admit Date [facility] August 24, 2024 10: 08am Chief Complaint Admit Date [facility] August 24, 2024 10: 08am URINE September 14, 2024 11:2 4am Chief Complaint Admit Date [facility] August 24, 2024 10: 08am URINE September 14, 2024 11:2 4am Control FU October 14, 2024 2: 10pm Reason for Visit Admit Date Dysmenorrhea in adolescent October 14, 2024 2:10pm Family History No Family History Records Found [...] Status: Active Member Role Status Dates Dr. Amanda Hernandez MD Family Provider Active Dr. Amanda Hernandez MD Primary Care Provider Active Team Status: Inactive Member Role Status Dates Dr. Amanda Hernandez MD Primary Care Provider, Referrin g Provider Active Dr. Nivia Anderson MD Attending Provider Active Team Status: Inactive Member Role Status Dates Dr. Amanda Hernandez MD Primary Care Provider Active Dr. Nivia Anderson MD Attending Provider, Referr ing Provider Active [facility] [employer] [facility] Relationship Specialty Start Date End Date Amanda Hernandez MD PCP - General Pediatrics 12/03/12 [facility] [employer] Relationship Specialty Start Date End Date Amanda Hernandez MD PCP - General Pediatrics 12/03/12 Team Status: Inactive Member Role Status Dates Dr. Desmond Cristina MD Attending Provider, Referring P mary kate Active Dr. Amanda Hernandez MD Primary Care Provider Active [employer] Relationship Specialty Start Date End Date Amanda Hernandez MD PCP - General Pediatrics 12/03/12 Team Status: Active Member Role/Relationship Status Dates Dr. Amanda Hernandez MD Family Provider Active Dr. Amanda Hernandez MD Primary Care Provider Active Team Status: Inactive Member Role/Relationship Status Dates Dr. Amanda Hernandez MD Primary Care Provider Active Start: August 24, 2024 End: August 24, 2024 Dr. Casandra Turner MD Attending Provider Active Start: August 24, 2024 End: August 24, 2024 Dr. Casandra Turner MD Referring Provider Active Start: August 24, 2024 End: August 24, 2024 Team Status: Inactive Member Role/Relationship Status Dates Dr. Amanda Hernandez MD Primary Care Provider Active Start: September 14, 2024 End: September 14, 2024 Dr. Casandra Turner MD Attending Provider Active Start: September 14, 2024 End: September 14, 2024 Dr. Casandra Turner MD Referring Provider Active Start: September 14, 2024 End: September 14, 2024 Team Status: Active Member Role/Relationship Status Dates ILIANA BRISENO Primary Care Provider Active Team Status: Active Member Role/Relationship Status Dates ILIANA BRISENO Primary Care Provider Active Start: October 13, 2024 Dr. Casandra Turner MD Attending Provider Active Start: October 13, 2024 Dr. Casandra Turner MD Referring Provider Active Start: October 13, 2024 Team Status: Inactive Member Role/Relationship Status Dates Dr. Amanda Hernandez MD Referring Provider Active Start: October 14, 2024 End: October 14, 2024 Dr. Nivia Anderson MD Attending Provider Active Start: October 14, 2024 End: October 14, 2024 ILIANA BRISENO Primary Care Provider Active Start: October 14, 2024 End: October 14, 2024 Team Status: Inactive Member Role/Relationship Status Dates ILIANA BRISENO Primary Care Provider Active Start: October 13, 2024 End: October 13, 2024 Dr. Casandra Turner MD Attending Provider Active Start: October 13, 2024 End: October 13, 2024 Dr. Casandra Turner MD Referring Provider Active Start: October 13, 2024 End: October 13, 2024 Goals (unrecognized section and content) Goals may be documented in a n alternate section INFORMATION SOURCE (unrecogn ized section and content) DATE CREATED AUTHOR 06/10/2023 [facility] DATE CREATED AUTHOR AUTHOR'S ORGANIZ ATION 08/20/2023 [facility] DATE CREATED AUTHOR AUTHOR'S ORGANIZ ATION 09/21/2023 [facility] [place] DATE CREATED AUTHOR AUTHOR'S ORGANIZ ATION 06/16/2024 [facility] DATE CREATED AUTHOR AUTHOR'S ORGANIZ ATION 09/23/2024 [facility] DATE CREATED AUTHOR AUTHOR'S ORGANIZ ATION 01/10/2025 [facility] FOR RECORDS PERTAINING TO PATIENTS WHO ARE [...] BE BASED ON THE PRIMARY CLINICAL RECORDS. [employer] [facility]. provides no warranty or guarantee of the accuracy or completeness of information in this document.
[2025-01-18 13:08] LABS: QNTFERON TB Mitogen Value > 10.00 IU/mL (.); QNTFERON TB Nil Value 0.05 IU/mL (.); QNTFERON TB1+ Ag Value 0.07 IU/mL (.); QNTFERON TB2+ Ag Value 0.05 IU/mL (.); QNTIFERON TB Positive Criteria Negative (Negative)
== END | disposition home or self-care (01) ==
LOC: RAD 15:06
PROVIDERS: PCP Nurse Practitioner Adult Health; Referring Provider Internal Medicine Rheumatology; Visit Provider Internal Medicine Rheumatology
DX: M05.79 Rheumatoid arthritis with rheumatoid factor of multiple sites without organ or systems involvement (principal); Z79.899 Other long term (current) drug therapy
CPT/HCPCS: 36415; 71046; 86480